=== PATIENT | male | born 1950 | race Caucasian/White ===

== ENCOUNTER 2016-04-02 06:53 | Emergency (ER) | payer OTHER ==
[~2016-04-02] VITALS: Ht 180.3 cm; Wt 131.5 kg
[~2016-04-02 06:53] MED LIST: ADULT LOW DOSE81 M1 PO; ADVAIR 250/501 DISK IH; ADVAIR 500/501 DISK IH; ADVAIR HFA120 INHALA IH; ALBUTEROL SULF8.5 GM IH; AMBIEN10 MG PO; AMBIEN5 MG PO; AMLODIPINE BESY10 MG PO; AMLODIPINE BESYL5 MG PO; ANTIVERT25 MG PO; APIDRA SOL100 UNIT/1 SC; ASPIR-LOW81 MG PO; ATORVASTATIN CA40 MG PO; AZITHROMYCIN250 MG PO; Advair 250/50 Diskus IH; Aspirin E.C. PO; BYETTA10 MCG/0.0 SC; BYETTA10 MCG/0.0 SQ; CEFEPIME HCL2 GM IV; CIPRO500 MG PO; CIPROFLOXACIN500 M1 PO; CLEOCIN150 MG PO; CO Q-1050 MG; CO Q-1050 MG PO; COENZYME Q1050 MG PO; COMBIVENT INH14.7 GM; COMBIVENT200 INHALA IH; COREG12.5 M1 PO; COREG6.25 M1 PO; CYMBALTA30 MG PO; CYMBALTA60 MG PO; Cymbalta PO; DEPAKENE250 MG PO; DEPAKOTE ER250 MG PO; DEPAKOTE ER500 MG PO; DEPAKOTE250 MG PO; DEPAKOTE500 MG PO; DILAUDID2 MG PO; DIVALPROEX SOD250 M1 PO; DIVALPROEX SOD250 MG PO; DIVALPROEX SOD500 MG PO; DOXYCYCLINE HY100 M1 PO; DULCOLAX10 MG PR; DULOXETINE HCL30 MG PO; DUONEB 2.5-0.5 M3 ML AEROSOL; DUONEB 2.5-0.5 M3 ML IH; Depakote ER (Extende PO; DuoNeb IH; FLEET ENEMA-AD118 ML PR; FLOMAX0.4 MG PO; FLORASTOR250 MG PO; FUROSEMIDE40 MG PO; GLIPIZIDE10 MG PO; GLUCOPHAGE1000 MG PO; HYDROCHLOROTH12.5 M3 PO; HYDROCHLOROTHIA25 MG PO; HYDROMORPHONE HC2 MG PO; IMODIUM MS REL1 EACH PO; INCRUSE ELLI62.5 MCG IH; IPRATR-ALBUTEROL3 ML IH; KIONEX15 GM/60 M PO; KLONOPIN0.5 M1 PO; KLOR-CON M1010 MEQ PO; LANTUS 10100 UNITS/ SC; LANTUS 3 M100 UNITS/ SQ; LANTUS 3 M100 UNITS1 SC; LASIX10 MG PO; LASIX20 MG PO; LASIX40 MG PO; LASIX80 MG PO; LEVAQUIN500 MG PO; LEVAQUIN750 MG PO; LEVEMIR FL100 UNIT/1 SC; LEVEMIR100 UNIT/2 SC; LEVOFLOXACIN750 MG PO; LINEZOLID600 MG PO; LIPITOR40 MG PO; LISINOPRIL-HCT1 EAC3 PO; LISINOPRIL10 MG PO; LISINOPRIL2.5 MG PO; LISINOPRIL20 MG PO; LISINOPRIL5 MG PO; LO-DOSE ASPIRIN81 M1 PO; LOW DOSE ASPIRI81 M1 PO; LYRICA75 MG PO; Levaquin PO; Lipitor PO; MAALOX ADVANCE355 ML PO; MACHINE; MAXIPIME2 GM IM; MEDROL DOSEPAK4 MG PO; MELOXICAM15 MG PO; METFORMIN HCL1000 MG PO; METFORMIN HCL850 MG PO; MILK OF MAGN PO; MOBIC15 MG PO; MOBIC7.5 MG PO; MONTELUKAST SOD10 MG PO; NORVASC5 MG PO; NOVOLOG 10100 UNITS/ SC; NOVOLOG PE100 UNITS/ SC; NOVOLOG100 UNIT/1 SQ; OMEPRAZOLE20 MG PO; OXYGEN MC; PERCOCET 5-3251 EACH PO; PERCOCET 5/31 TABLET PO; PLAVIX75 MG PO; PREDNISONE10 MG PO; PREDNISONE20 MG PO; PREDNISONE50 MG PO; PRILOSEC10 MG PO; PRILOSEC20 MG PO; PROAIR HFA8.5 GM IH; PROVENTIL,2.5 MG/3 M IH; Plavix PO; SINGULAIR10 MG PO; SODIUM POL15 GM/60 M PO; SPIRIVA1 INHALATI IH; ST. JOSEPH ASPI81 MG PO; Singulair PO; TAMSULOSIN HCL0.4 MG PO; TRICOR145 MG PO; TUMS500 MG PO; TYLENOL REGULA325 MG PO; Tylenol Regular Stre PO; VENTOLIN HFA18 GM IH; VIAGRA50 MG PO; VITAMIN D-32000 UNI1 PO; VITAMIN D-32000 UNI2 PO; VITAMIN D2000 UNIT PO; VITAMIN D32000 UNI1 PO; VITAMIN D32000 UNIT PO; XANAX0.5 MG PO; ZESTRIL,PRINIVI10 MG PO; ZESTRIL10 MG PO; ZETIA10 MG; ZETIA10 MG PO; ZITHROMAX Z-PA250 MG PO; ZITHROMAX250 MG PO; ZOCOR80 MG PO; ZOLPIDEM TARTRA10 MG PO; ZYVOX600 MG PO; Zestril,Prinivil PO; Zetia PO; [UNRECOGNIZED DRUG - OTHER]
[2016-04-02 07:36] LABS: HEMATOCRIT 32.6 % (38.0-50.0); MCH 26.5 PG (29.0-34.0); MCHC 31.9 G/DL (30.0-36.0); MEAN PLAT.VOLUME 10.6 uM^3 (9.0-12.4); PLATELET COUNT 143 K/uL (156-360); RBC DIS.WIDTH-CV 14.9 % (11.8-14.6); RBC DIS.WIDTH-SD 44.1 % (39-53); RED BLOOD COUNT 3.93 M/uL (4.00-5.50); WHITE BLOOD COUNT 7.6 K/uL (4.1-10.2)
[2016-04-02 07:57] LABS: BASOPHIL COUNT 0.1 K/uL (0-0.1); EOSINOPHIL (%) 14.4 % (0-5); EOSINOPHIL COUNT 1.1 K/uL (0-0.3); IMMATURE GRANULOCYTE (%) 0.1 % (0.0-0.7); IMMATURE GRANULOCYTE COUNT 0.1 K/uL; LYMPHOCYTE COUNT 2.3 K/uL (1.0-2.8); MONOCYTE (%) 6.9 % (3-12); MONOCYTE COUNT 0.5 K/uL (0-0.8); NEUTROPHIL (%) 47.4 % (45-76); NEUTROPHIL COUNT 3.6 K/uL (1.8-6.4)
[2016-04-02 08:07] LABS: ANION GAP 12 MEQ/L (2-14); CHLORIDE 106 MEQ/L (99-109); POTASSIUM 5.7 MEQ/L (3.7-5.4); SAMPLE HEMOLYSIS CHECK 0; SAMPLE ICTERIC CHECK 0; SAMPLE LIPEMIA CHECK 0; SODIUM 139 MEQ/L (136-147); TOTAL BILIRUBIN 0.3 MG/DL (0.0-1.0)
[2016-04-02 08:12] LABS: ALKALINE PHOSPHATASE 66 IU/L (3-129); GFR ESTIMATE (CALCULATED) 54 mL/min/; GLUCOSE 192 mg/dL (70-99); LIPASE 35 U/L (1.0-51.0); UREA NITROGEN (BUN) 32 mg/dL (9-23)
[2016-04-02 11:13] LABS: ADD MIUA? NO; BILIRUBIN NEGATIVE; BLOOD NEGATIVE; COLOR YELLOW ((YELLOW)); GLUCOSE (STRIP) NEGATIVE; KETONES NEGATIVE; LEUKOCYTES NEGATIVE; NITRITE NEGATIVE; PROTEIN (STRIP) TRACE; SPECIFIC GRAVITY 1.016 (1.000-1.030); UROBILINOGEN 0.2 MG/DL (0.2-1.0)
[2016-04-02] MEDS ORDERED: FUROSEMIDE40 MG PO (11:14)
[2016-04-02 11:15] LABS: UCUL ADDED? NO
[2016-04-02] MEDS ORDERED: ZOFRAN4 MG PO (12:25)
[2016-04-02 12:58] VITALS: BP 158/65
== END 2016-04-02 13:20 | disposition home or self-care (01) ==
LOC: EME 06:53
PROVIDERS: Emergency Medicine
DX: R11.2 Nausea with vomiting, unspecified (principal); J45.909 Unspecified asthma, uncomplicated; J44.9 Chronic obstructive pulmonary disease, unspecified; I11.0 Hypertensive heart disease with heart failure; I50.9 Heart failure, unspecified; E11.9 Type 2 diabetes mellitus without complications; E78.5 Hyperlipidemia, unspecified; I25.2 Old myocardial infarction; K21.9 Gastro-esophageal reflux disease without esophagitis; R56.9 Unspecified convulsions; G47.30 Sleep apnea, unspecified; E03.9 Hypothyroidism, unspecified; Z86.14 Personal history of Methicillin resistant Staphylococcus aureus infection; Z79.82 Long term (current) use of aspirin; Z79.4 Long term (current) use of insulin; Z87.891 Personal history of nicotine dependence
CPT/HCPCS: 74176; 80053; 81003; 83605; 83690; 85025; 93005; 99281; 99285; J2405

== ENCOUNTER 2016-04-16 23:24 | Observation (INO) | payer OTHER ==
[~2016-04-16] VITALS: Ht 177.8 cm; Wt 123.6 kg
[~2016-04-16 23:24] MED LIST changes: +ZOFRAN4 MG PO
[2016-04-17 00:22] LABS: CHLORIDE 111 mEq/L (99-109); POTASSIUM 5.4 mEq/L (3.7-5.4); SODIUM 139 mEq/L (136-147)
[2016-04-17 00:24] LABS: BASOPHIL COUNT 0.1 K/uL (0-0.1); EOSINOPHIL COUNT 0.6 K/uL (0-0.3); HEMATOCRIT 33.7 % (38.0-50.0); IMMATURE GRANULOCYTE (%) 0.4 % (0.0-0.7); IMMATURE GRANULOCYTE COUNT 0.3 K/uL; LYMPHOCYTE COUNT 2.3 K/uL (1.0-2.8); MCH 26.7 PG (29.0-34.0); MCHC 32.3 G/DL (30.0-36.0); MCV 82.4 FL (86-99); MONOCYTE (%) 7.1 % (3-12); MONOCYTE COUNT 0.5 K/uL (0-0.8); NEUTROPHIL (%) 48.3 % (45-76); NEUTROPHIL COUNT 3.3 K/uL (1.8-6.4); RBC DIS.WIDTH-CV 14.9 % (11.8-14.6); RBC DIS.WIDTH-SD 43.3 % (39-53); RED BLOOD COUNT 4.09 M/uL (4.00-5.50); WHITE BLOOD COUNT 6.8 K/uL (4.1-10.2)
[2016-04-17 00:24] LABS: GLUCOSE 155 mg/dL (70-99)
[2016-04-17 00:25] LABS: ANION GAP 9 MEQ/L (2-14)
[2016-04-17 00:28] LABS: GFR ESTIMATE (CALCULATED) 50 mL/min/
[2016-04-17 00:29] LABS: UREA NITROGEN (BUN) 21 mg/dL (9-23)
[2016-04-17 00:34] LABS: TROP-I INTERPRETATION NEGATIVE; TROPONIN-I < 0.01 ng/mL (0.0-0.30)
[2016-04-17 01:43] LABS: USER ID SLU
[2016-04-17 01:44] LABS: MEAN PLAT.VOLUME 11.5 uM^3 (9.0-12.4); PLATELET COUNT UNABLE TO REPORT K/uL (156-360)
[2016-04-17 05:07] VITALS: BP 169/80
[2016-04-17 07:27] LABS: HDL CHOLESTEROL 29 MG/DL (Desirable>=40); LDL CHOLESTEROL 74 mg/dL (Desirable<100); NON-HDL CHOLESTEROL 109 mg/dL (Desirable<160); TOTAL CHOLESTEROL 138 mg/dL (Desirable<200); TRIGLYCERIDES 176 MG/DL (Normal: <150)
[2016-04-17 07:35] LABS: TROP-I INTERPRETATION NEGATIVE; TROPONIN-I < 0.01 ng/mL (0.0-0.30)
[2016-04-17 08:00] VITALS: BP 137/68
[2016-04-17 08:55] LABS: POINT-OF-CARE METER ID UU13113831
[2016-04-17 12:33] VITALS: BP 158/72
[2016-04-17 12:41] LABS: POINT-OF-CARE METER ID UU13113831
[2016-04-17 13:07] LABS: TROP-I INTERPRETATION NEGATIVE; TROPONIN-I 0.01 ng/mL (0.0-0.30)
[2016-04-17] MEDS ORDERED: LIDOCAINE700 MG TD (13:14)
== END 2016-04-17 15:15 | disposition home health service (06) ==
LOC: EME 23:24 → EDOF 04-17 03:48 → 5WEST 04-17 04:55
PROVIDERS: Emergency Medicine; Hospitalist; Physician Assistant Medical
DX: R07.89 Other chest pain (principal); R11.2 Nausea with vomiting, unspecified; R06.02 Shortness of breath; I25.2 Old myocardial infarction; I13.0 Hypertensive heart and chronic kidney disease with heart failure and stage 1 through stage 4 chronic kidney disease, or unspecified chronic kidney disease; N18.3 Chronic kidney disease, stage 3 (moderate); I50.30 Unspecified diastolic (congestive) heart failure; I25.10 Atherosclerotic heart disease of native coronary artery without angina pectoris; I25.82 Chronic total occlusion of coronary artery; E11.65 Type 2 diabetes mellitus with hyperglycemia; Z79.4 Long term (current) use of insulin; E78.5 Hyperlipidemia, unspecified; J44.9 Chronic obstructive pulmonary disease, unspecified; K21.9 Gastro-esophageal reflux disease without esophagitis; Z87.891 Personal history of nicotine dependence; G47.33 Obstructive sleep apnea (adult) (pediatric); Z91.19 Patient's noncompliance with other medical treatment and regimen; G40.909 Epilepsy, unspecified, not intractable, without status epilepticus; E66.01 Morbid (severe) obesity due to excess calories; N40.0 Benign prostatic hyperplasia without lower urinary tract symptoms; M19.90 Unspecified osteoarthritis, unspecified site; Z68.39 Body mass index [BMI] 39.0-39.9, adult
CPT/HCPCS: 71010; 80048; 80061; 82948; 83880; 84484; 85025; 93005; 94640; 99202; 99281; 99285; G0378; J1650; J1815; J1885

== ENCOUNTER 2016-04-27 02:51 | Observation (INO) | payer OTHER ==
[~2016-04-27] VITALS: Ht 180.3 cm; Wt 127.8 kg
[~2016-04-27 02:51] MED LIST changes: +LIDOCAINE700 MG TD
[2016-04-27 03:40] LABS: BASOPHIL COUNT 0.1 K/uL (0-0.1); EOSINOPHIL (%) 5.9 % (0-5); EOSINOPHIL COUNT 0.4 K/uL (0-0.3); HEMATOCRIT 31.5 % (38.0-50.0); IMMATURE GRANULOCYTE (%) 0.1 % (0.0-0.7); IMMATURE GRANULOCYTE COUNT 0.1 K/uL; LYMPHOCYTE COUNT 2.4 K/uL (1.0-2.8); MCH 26.2 PG (29.0-34.0); MCHC 32.1 G/DL (30.0-36.0); MCV 81.8 FL (86-99); MONOCYTE (%) 7.6 % (3-12); MONOCYTE COUNT 0.5 K/uL (0-0.8); NEUTROPHIL (%) 51.6 % (45-76); NEUTROPHIL COUNT 3.7 K/uL (1.8-6.4); RBC DIS.WIDTH-CV 14.8 % (11.8-14.6); RBC DIS.WIDTH-SD 42.9 % (39-53); RED BLOOD COUNT 3.85 M/uL (4.00-5.50); WHITE BLOOD COUNT 7.1 K/uL (4.1-10.2)
[2016-04-27 03:52] LABS: CHLORIDE 111 mEq/L (99-109); POTASSIUM 4.6 mEq/L (3.7-5.4); SODIUM 139 mEq/L (136-147)
[2016-04-27 03:55] LABS: GLUCOSE 221 mg/dL (70-99)
[2016-04-27 03:56] LABS: ANION GAP 10 MEQ/L (2-14); TOTAL BILIRUBIN 0.3 mg/dL (0.0-1.0)
[2016-04-27 03:58] LABS: ALKALINE PHOSPHATASE 64 IU/L (3-129); GFR ESTIMATE (CALCULATED) 46 mL/min/
[2016-04-27 03:59] LABS: UREA NITROGEN (BUN) 32 mg/dL (9-23)
[2016-04-27 04:02] LABS: LIPASE 29 U/L (1.0-51.0)
[2016-04-27 04:04] LABS: TROP-I INTERPRETATION NEGATIVE; TROPONIN-I < 0.01 ng/mL (0.0-0.30)
[2016-04-27 04:34] LABS: MEAN PLAT.VOLUME 10.1 uM^3 (9.0-12.4); PLAT.SUFFICIENCY ADEQUATE
[2016-04-27 04:36] LABS: ADD MIUA? YES; BILIRUBIN NEGATIVE; BLOOD SMALL; COLOR YELLOW ((YELLOW)); GLUCOSE (STRIP) NEGATIVE; KETONES NEGATIVE; LEUKOCYTES NEGATIVE; NITRITE NEGATIVE; PH, URINE 5.5 (5-8); PROTEIN (STRIP) TRACE; SPECIFIC GRAVITY 1.012 (1.000-1.030); UROBILINOGEN 0.2 MG/DL (0.2-1.0)
[2016-04-27 04:38] LABS: PLATELET COUNT 122 K/uL (156-360)
[2016-04-27 05:42] LABS: BACTERIA NONE SEEN; CASTS NONE SEEN /LPF; CRYSTALS NONE SEEN; EPITHELIAL CELLS NONE SEEN; MUCUS NONE SEEN; RED BLOOD CELLS NONE SEEN /HPF (0-5); UCUL ADDED? NO; WHITE BLOOD CELLS 0-5 /HPF (0-5)
[2016-04-27 07:19] LABS: POINT-OF-CARE METER ID UU14100415
[2016-04-27] MEDS ORDERED: SALINE NASAL SP45 ML BOTH NARES (07:46)
[2016-04-27 09:55] VITALS: BP 150/71
[2016-04-27 11:09] VITALS: BP 148/79
[2016-04-27 11:26] LABS: POINT-OF-CARE METER ID UU14174225
[2016-04-27 15:46] VITALS: BP 157/72
[2016-04-27 20:11] VITALS: BP 152/72
[2016-04-28] VITALS (7 sets, daily range): BP systolic 130–179; BP diastolic 58–86
[2016-04-28 06:52] LABS: HEMATOCRIT 30.3 % (38.0-50.0); MCH 26.5 PG (29.0-34.0); MCV 80.4 FL (86-99); MEAN PLAT.VOLUME 10.3 uM^3 (9.0-12.4); PLATELET COUNT 130 K/uL (156-360); RBC DIS.WIDTH-CV 14.8 % (11.8-14.6); RED BLOOD COUNT 3.77 M/uL (4.00-5.50)
[2016-04-28 07:21] LABS: ANION GAP 7 MEQ/L (2-14); CHLORIDE 109 MEQ/L (99-109); GFR ESTIMATE (CALCULATED) 46 mL/min/; POTASSIUM 5.3 MEQ/L (3.7-5.4); SAMPLE HEMOLYSIS CHECK 0; SAMPLE ICTERIC CHECK 0; SAMPLE LIPEMIA CHECK 0; SODIUM 138 MEQ/L (136-147); UREA NITROGEN (BUN) 32 mg/dL (9-23)
[2016-04-28 07:28] LABS: GLUCOSE 104 mg/dL (70-99)
[2016-04-28 07:43] LABS: METH RESISTANT S AUREUS PCR POSITIVE (NEGATIVE)
[2016-04-28 07:46] LABS: PROBE CHECK PASS
[2016-04-29 04:00] VITALS: BP 148/85
[2016-04-29 07:30] VITALS: BP 156/72
[2016-04-29 09:55] LABS: ANION GAP 7 MEQ/L (2-14); CHLORIDE 107 MEQ/L (99-109); GFR ESTIMATE (CALCULATED) 40 mL/min/; GLUCOSE 142 mg/dL (70-99); POTASSIUM 5.3 MEQ/L (3.7-5.4); SAMPLE HEMOLYSIS CHECK 0; SAMPLE ICTERIC CHECK 0; SAMPLE LIPEMIA CHECK 0; SODIUM 136 MEQ/L (136-147); UREA NITROGEN (BUN) 42 mg/dL (9-23)
[2016-04-29 10:48] VITALS: BP 165/79
[2016-04-29] MEDS ORDERED: LEVOFLOXACIN750 MG PO (12:42)
[2016-04-29] MEDS ORDERED: PREDNISONE20 MG PO (12:42)
[2016-04-29] MEDS ORDERED: SPIRIVA1 INHALATI IH (12:46)
[2016-04-29 15:56] VITALS: BP 148/70
== END 2016-04-29 16:33 | disposition home health service (06) ==
LOC: EME → EDBD 02:51 → EME 02:51 → 5SOUTH 05:57 → EDOF 05:57 → 5SOUTH 09:33
PROVIDERS: Emergency Medicine; Hospitalist
DX: J44.1 Chronic obstructive pulmonary disease with (acute) exacerbation (principal); R09.02 Hypoxemia; R07.89 Other chest pain; I10 Essential (primary) hypertension; E11.9 Type 2 diabetes mellitus without complications; R06.09 Other forms of dyspnea; F41.9 Anxiety disorder, unspecified; F32.9 Major depressive disorder, single episode, unspecified; Z99.81 Dependence on supplemental oxygen; R10.9 Unspecified abdominal pain; E66.9 Obesity, unspecified; G47.30 Sleep apnea, unspecified; J30.9 Allergic rhinitis, unspecified; Z88.0 Allergy status to penicillin; Z88.5 Allergy status to narcotic agent
CPT/HCPCS: 71010; 74176; 80048; 80053; 80164; 81003; 82948; 83690; 83880; 84484; 85025; 85027; 87641; 93005; 94640; 94640 76; 94799; 99202; 99281; 99285; G0378; J1650; J1815; J1885; J2405; J7030; J7512

== ENCOUNTER 2016-06-09 12:15 | Observation (INO) | payer OTHER ==
[~2016-06-09] VITALS: Ht 180.3 cm; Wt 132.7 kg
[~2016-06-09 12:15] MED LIST changes: +SALINE NASAL SP45 ML BOTH NARES
[2016-06-09 12:44] LABS: BASOPHIL COUNT 0.1 K/uL (0-0.1); EOSINOPHIL (%) 7.6 % (0-5); EOSINOPHIL COUNT 0.5 K/uL (0-0.3); HEMATOCRIT 32.9 % (38.0-50.0); IMMATURE GRANULOCYTE (%) 0.4 % (0.0-0.7); INSTRUMENT ABS NEUTROPHIL CT 3.4 K/uL; LYMPHOCYTE COUNT 2.2 K/uL (1.0-2.8); MCH 26.3 PG (29.0-34.0); MCHC 31.9 G/DL (30.0-36.0); MCV 82.3 FL (86-99); MEAN PLAT.VOLUME 9.8 uM^3 (9.0-12.4); MONOCYTE (%) 9.3 % (3-12); MONOCYTE COUNT 0.6 K/uL (0-0.8); NEUTROPHIL (%) 49.5 % (45-76); NEUTROPHIL COUNT 3.4 K/uL (1.8-6.4); PLATELET COUNT 159 K/uL (156-360); RBC DIS.WIDTH-CV 13.8 % (11.8-14.6); RBC DIS.WIDTH-SD 41.4 % (39-53); WHITE BLOOD COUNT 6.9 K/uL (4.1-10.2)
[2016-06-09 13:02] LABS: CHLORIDE 108 mEq/L (99-109); INTER. NORMALIZED RATIO 1.1; POTASSIUM 4.8 mEq/L (3.7-5.4); PROTHROMBIN TIME 10.9 (9.2-11.2); PTT 24.5 (25-32); SODIUM 141 mEq/L (136-147)
[2016-06-09 13:04] LABS: GLUCOSE 192 mg/dL (70-99)
[2016-06-09 13:05] LABS: ANION GAP 9 MEQ/L (2-14)
[2016-06-09 13:08] LABS: GFR ESTIMATE (CALCULATED) 54 mL/min/
[2016-06-09 13:09] LABS: UREA NITROGEN (BUN) 17 mg/dL (9-23)
[2016-06-09 13:10] LABS: TROP-I INTERPRETATION NEGATIVE; TROPONIN-I < 0.01 ng/mL (0.0-0.30)
[2016-06-09] MEDS ORDERED: LASIX40 MG PO (15:12)
[2016-06-09] MEDS ORDERED: OCEAN NASAL 0.645 ML BOTH NARES (15:12)
[2016-06-09] MEDS ORDERED: VITAMIN D31000 UNI2 PO (15:13)
[2016-06-09] MEDS ORDERED: PAIN & FEVER500 MG PO (15:13)
[2016-06-09 16:44] VITALS: BP 187/86
[2016-06-09 16:57] LABS: POINT-OF-CARE METER ID UU13113831
[2016-06-09 19:16] LABS: TROP-I INTERPRETATION NEGATIVE; TROPONIN-I 0.01 ng/mL (0.0-0.30)
[2016-06-09 20:32] LABS: METH RESISTANT S AUREUS PCR POSITIVE (NEGATIVE)
[2016-06-09 20:35] LABS: PROBE CHECK PASS
[2016-06-09 20:39] LABS: POINT-OF-CARE METER ID UU13113831
[2016-06-09 21:17] VITALS: BP 150/78
[2016-06-09 23:02] VITALS: BP 158/78
[2016-06-10 01:28] LABS: TROP-I INTERPRETATION NEGATIVE; TROPONIN-I < 0.01 ng/mL (0.0-0.30)
[2016-06-10 04:10] VITALS: BP 163/72
[2016-06-10 06:06] LABS: HEMATOCRIT 30.2 % (38.0-50.0); MCH 26.6 PG (29.0-34.0); MCHC 32.1 G/DL (30.0-36.0); MCV 82.7 FL (86-99); MEAN PLAT.VOLUME 10.5 uM^3 (9.0-12.4); PLATELET COUNT 144 K/uL (156-360); RBC DIS.WIDTH-CV 14.3 % (11.8-14.6); RBC DIS.WIDTH-SD 42.6 % (39-53); RED BLOOD COUNT 3.65 M/uL (4.00-5.50); WHITE BLOOD COUNT 7.1 K/uL (4.1-10.2)
[2016-06-10 06:18] LABS: ANION GAP 10 MEQ/L (2-14); CHLORIDE 106 MEQ/L (99-109); GFR ESTIMATE (CALCULATED) 54 mL/min/; GLUCOSE 169 mg/dL (70-99); SAMPLE HEMOLYSIS CHECK 0; SAMPLE ICTERIC CHECK 0; SAMPLE LIPEMIA CHECK 0; SODIUM 138 MEQ/L (136-147); UREA NITROGEN (BUN) 22 mg/dL (9-23)
[2016-06-10 07:27] VITALS: BP 139/65
[2016-06-10] MEDS ORDERED: LIPITOR40 MG PO (11:35)
[2016-06-10] MEDS ORDERED: FLOMAX0.4 MG PO (11:35)
[2016-06-10] MEDS ORDERED: HYDROCHLOROTHIA25 MG PO (11:35)
[2016-06-10] MEDS ORDERED: DEPAKOTE ER500 MG PO (11:35)
[2016-06-10] MEDS ORDERED: DEPAKOTE ER250 MG PO (11:35)
[2016-06-10] MEDS ORDERED: KLONOPIN0.5 M1 PO (11:35)
[2016-06-10] MEDS ORDERED: AMLODIPINE BESY10 MG PO (11:35)
[2016-06-10] MEDS ORDERED: LISINOPRIL2.5 MG PO (12:17)
[2016-06-10] MEDS ORDERED: AMLODIPINE BESYL5 MG PO (12:17)
[2016-06-10 12:34] VITALS: BP 141/64
[2016-06-10 12:43] LABS: POINT-OF-CARE METER ID UU13113831
== END 2016-06-10 16:10 | disposition home or self-care (01) ==
LOC: EME → EDBD 12:15 → EME 12:15 → EDOF 14:06 → 5WEST 14:06
PROVIDERS: Emergency Medicine; Family Medicine; Hospitalist
DX: R07.89 Other chest pain (principal); I25.10 Atherosclerotic heart disease of native coronary artery without angina pectoris; I13.0 Hypertensive heart and chronic kidney disease with heart failure and stage 1 through stage 4 chronic kidney disease, or unspecified chronic kidney disease; I50.9 Heart failure, unspecified; N18.3 Chronic kidney disease, stage 3 (moderate); J44.9 Chronic obstructive pulmonary disease, unspecified; D63.8 Anemia in other chronic diseases classified elsewhere; E11.9 Type 2 diabetes mellitus without complications; G47.30 Sleep apnea, unspecified; Z91.19 Patient's noncompliance with other medical treatment and regimen; E78.5 Hyperlipidemia, unspecified; F41.9 Anxiety disorder, unspecified; F31.9 Bipolar disorder, unspecified; E66.9 Obesity, unspecified; Z68.41 Body mass index [BMI] 40.0-44.9, adult; Z87.891 Personal history of nicotine dependence
CPT/HCPCS: 71010; 80048; 82948; 84484; 85025; 85027; 85610; 85730; 87641; 93005; 99281; 99285; G0378; J1644; J1815

== ENCOUNTER 2016-06-21 11:09 | Emergency (ER) | payer OTHER ==
[~2016-06-21] VITALS: Ht 180.3 cm; Wt 120.7 kg
[~2016-06-21 11:09] MED LIST changes: +OCEAN NASAL 0.645 ML BOTH NARES; +PAIN & FEVER500 MG PO; +VITAMIN D31000 UNI2 PO
[2016-06-21 12:54] LABS: INFLUENZA A VIRAL ANTIGEN NEGATIVE; INFLUENZA B VIRAL ANTIGEN NEGATIVE
[2016-06-21 12:56] LABS: HEMATOCRIT 30.6 % (38.0-50.0); MCH 26.2 PG (29.0-34.0); MCHC 31.4 G/DL (30.0-36.0); MCV 83.6 FL (86-99); MEAN PLAT.VOLUME 9.9 uM^3 (9.0-12.4); PLATELET COUNT 186 K/uL (156-360); RBC DIS.WIDTH-CV 14.4 % (11.8-14.6); RBC DIS.WIDTH-SD 43.1 % (39-53); RED BLOOD COUNT 3.66 M/uL (4.00-5.50); WHITE BLOOD COUNT 8.3 K/uL (4.1-10.2)
[2016-06-21 13:09] LABS: CHLORIDE 107 mEq/L (99-109); POTASSIUM 4.6 mEq/L (3.7-5.4); SODIUM 140 mEq/L (136-147)
[2016-06-21 13:11] LABS: GLUCOSE 145 mg/dL (70-99)
[2016-06-21 13:13] LABS: ANION GAP 13 MEQ/L (2-14); TOTAL BILIRUBIN 0.5 mg/dL (0.0-1.0)
[2016-06-21 13:15] LABS: ALKALINE PHOSPHATASE 78 IU/L (3-129); GFR ESTIMATE (CALCULATED) 54 mL/min/
[2016-06-21 13:16] LABS: UREA NITROGEN (BUN) 20 mg/dL (9-23)
[2016-06-21 13:20] LABS: TROP-I INTERPRETATION NEGATIVE; TROPONIN-I < 0.01 ng/mL (0.0-0.30)
[2016-06-21] MEDS ORDERED: PREDNISONE50 MG PO (14:50)
[2016-06-21 15:22] VITALS: BP 154/61
== END 2016-06-21 15:23 | disposition home or self-care (01) ==
LOC: EME → EDBD 11:09 → EME 15:23
PROVIDERS: Emergency Medicine
DX: J44.1 Chronic obstructive pulmonary disease with (acute) exacerbation (principal); B34.9 Viral infection, unspecified; M79.1 Myalgia; J45.909 Unspecified asthma, uncomplicated; I11.0 Hypertensive heart disease with heart failure; I50.9 Heart failure, unspecified; E11.9 Type 2 diabetes mellitus without complications; E78.5 Hyperlipidemia, unspecified; I25.2 Old myocardial infarction; K21.9 Gastro-esophageal reflux disease without esophagitis; G47.30 Sleep apnea, unspecified; Z86.14 Personal history of Methicillin resistant Staphylococcus aureus infection; E03.9 Hypothyroidism, unspecified; Z79.82 Long term (current) use of aspirin; Z79.4 Long term (current) use of insulin; Z87.891 Personal history of nicotine dependence
CPT/HCPCS: 71020; 80053; 81003; 83880; 84484; 85027; 87502; 94644; 99281; 99285; J2930

== ENCOUNTER 2016-07-18 10:27 | Observation (INO) | payer OTHER ==
[~2016-07-18] VITALS: Ht 180.3 cm; Wt 121.5 kg
[2016-07-18 11:05] LABS: BASOPHIL COUNT 0.1 K/uL (0-0.1); EOSINOPHIL (%) 6.9 % (0-5); EOSINOPHIL COUNT 0.5 K/uL (0-0.3); HEMATOCRIT 33.7 % (38.0-50.0); IMMATURE GRANULOCYTE (%) 0.4 % (0.0-0.7); INSTRUMENT ABS NEUTROPHIL CT 3.7 K/uL; LYMPHOCYTE COUNT 2.3 K/uL (1.0-2.8); MCH 26.4 PG (29.0-34.0); MCHC 32.3 G/DL (30.0-36.0); MCV 81.6 FL (86-99); MONOCYTE (%) 7.8 % (3-12); MONOCYTE COUNT 0.6 K/uL (0-0.8); NEUTROPHIL COUNT 3.7 K/uL (1.8-6.4); PLATELET COUNT 176 K/uL (156-360); RBC DIS.WIDTH-CV 14.6 % (11.8-14.6); RBC DIS.WIDTH-SD 42.5 % (39-53); RED BLOOD COUNT 4.13 M/uL (4.00-5.50); WHITE BLOOD COUNT 7.1 K/uL (4.1-10.2)
[2016-07-18 11:16] LABS: CHLORIDE 108 mEq/L (99-109); D-DIMER ELISA 1.44 mg/L FEU (< 0.57); POTASSIUM 4.4 mEq/L (3.7-5.4); SODIUM 139 mEq/L (136-147)
[2016-07-18 11:19] LABS: GLUCOSE 277 mg/dL (70-99)
[2016-07-18 11:20] LABS: ANION GAP 12 MEQ/L (2-14)
[2016-07-18 11:21] LABS: TOTAL BILIRUBIN 0.4 mg/dL (0.0-1.0)
[2016-07-18 11:22] LABS: ALKALINE PHOSPHATASE 85 IU/L (3-129); GFR ESTIMATE (CALCULATED) 46 mL/min/
[2016-07-18 11:23] LABS: UREA NITROGEN (BUN) 34 mg/dL (9-23)
[2016-07-18 11:26] LABS: LIPASE 28 U/L (1.0-51.0); TROP-I INTERPRETATION NEGATIVE; TROPONIN-I < 0.01 ng/mL (0.0-0.30)
[2016-07-18] MEDS ORDERED: DUONEB 2.5-0.5 M3 ML AEROSOL (14:59)
[2016-07-18] MEDS ORDERED: PROAIR HFA8.5 GM IH (14:59)
[2016-07-18] MEDS ORDERED: NORVASC5 MG PO (15:10)
[2016-07-18 17:37] VITALS: BP 164/72
[2016-07-18 17:43] LABS: POINT-OF-CARE METER ID UU13113831
[2016-07-18 18:14] LABS: TROP-I INTERPRETATION NEGATIVE; TROPONIN-I < 0.01 ng/mL (0.0-0.30)
[2016-07-18 19:50] VITALS: BP 155/74
[2016-07-18 20:37] LABS: METH RESISTANT S AUREUS PCR POSITIVE (NEGATIVE)
[2016-07-18 20:40] LABS: PROBE CHECK PASS
[2016-07-18 21:37] LABS: POINT-OF-CARE METER ID UU13113831
[2016-07-18 23:18] LABS: TROP-I INTERPRETATION NEGATIVE; TROPONIN-I < 0.01 ng/mL (0.0-0.30)
[2016-07-19] VITALS: BP 148/82
[2016-07-19 04:00] VITALS: BP 142/62
[2016-07-19 06:12] LABS: HEMATOCRIT 29.3 % (38.0-50.0); MCH 26.2 PG (29.0-34.0); MCHC 31.7 G/DL (30.0-36.0); MCV 82.5 FL (86-99); MEAN PLAT.VOLUME 10.8 uM^3 (9.0-12.4); PLATELET COUNT 160 K/uL (156-360); RBC DIS.WIDTH-CV 14.5 % (11.8-14.6); RBC DIS.WIDTH-SD 42.9 % (39-53); RED BLOOD COUNT 3.55 M/uL (4.00-5.50)
[2016-07-19 06:25] LABS: ANION GAP 9 MEQ/L (2-14); CHLORIDE 106 MEQ/L (99-109); GFR ESTIMATE (CALCULATED) 50 mL/min/; GLUCOSE 225 mg/dL (70-99); POTASSIUM 4.8 MEQ/L (3.7-5.4); SAMPLE HEMOLYSIS CHECK 0; SAMPLE ICTERIC CHECK 0; SAMPLE LIPEMIA CHECK 0; SODIUM 138 MEQ/L (136-147); UREA NITROGEN (BUN) 39 mg/dL (9-23)
[2016-07-19 08:12] LABS: POINT-OF-CARE METER ID UU14162513
[2016-07-19] MEDS ORDERED: KLONOPIN0.5 M1 PO (08:52)
[2016-07-19 09:11] VITALS: BP 146/69
[2016-07-19 11:53] VITALS: BP 143/68
[2016-07-19 12:28] LABS: POINT-OF-CARE METER ID UU14162513
== END 2016-07-19 15:34 | disposition home or self-care (01) ==
LOC: EME → EDBD 10:27 → EME 10:27 → EDOF 14:52 → 5WEST 14:52 → EDOF 14:52 → 5WEST 17:08
PROVIDERS: Emergency Medicine; Hospitalist; Internal Medicine; Physician Assistant Medical
DX: R07.89 Other chest pain (principal); I25.10 Atherosclerotic heart disease of native coronary artery without angina pectoris; I13.0 Hypertensive heart and chronic kidney disease with heart failure and stage 1 through stage 4 chronic kidney disease, or unspecified chronic kidney disease; N18.3 Chronic kidney disease, stage 3 (moderate); I50.9 Heart failure, unspecified; E11.40 Type 2 diabetes mellitus with diabetic neuropathy, unspecified; J44.9 Chronic obstructive pulmonary disease, unspecified; E78.5 Hyperlipidemia, unspecified; F41.9 Anxiety disorder, unspecified; G47.33 Obstructive sleep apnea (adult) (pediatric); F31.9 Bipolar disorder, unspecified; K21.9 Gastro-esophageal reflux disease without esophagitis; J45.909 Unspecified asthma, uncomplicated; E66.01 Morbid (severe) obesity due to excess calories; N40.0 Benign prostatic hyperplasia without lower urinary tract symptoms; Z79.4 Long term (current) use of insulin; Z68.37 Body mass index [BMI] 37.0-37.9, adult
CPT/HCPCS: 71010; 78582; 80048; 80053; 82948; 83690; 83880; 84484; 85025; 85027; 85379; 87641; 93005; 94640; 94640 76; 94760; 94799; 99202; 99281; 99285; A9540; A9567; G0378; J1644; J1815

== ENCOUNTER 2016-08-14 02:20 | Emergency (ER) | payer OTHER ==
[~2016-08-14] VITALS: Ht 180.3 cm; Wt 122.7 kg
[2016-08-14 02:47] LABS: HEMATOCRIT 33.5 % (38.0-50.0); MCH 27.2 PG (29.0-34.0); MCHC 32.5 G/DL (30.0-36.0); MCV 83.5 FL (86-99); MEAN PLAT.VOLUME 10.7 uM^3 (9.0-12.4); PLATELET COUNT 131 K/uL (156-360); RBC DIS.WIDTH-CV 14.1 % (11.8-14.6); RBC DIS.WIDTH-SD 42.8 % (39-53); RED BLOOD COUNT 4.01 M/uL (4.00-5.50); WHITE BLOOD COUNT 5.9 K/uL (4.1-10.2)
[2016-08-14 02:48] LABS: CARBON DIOXIDE (BICARBONATE) 27.3 MEQ/L (20-31)
[2016-08-14 02:57] LABS: CHLORIDE 101 mEq/L (99-109); SODIUM 134 mEq/L (136-147)
[2016-08-14 03:01] LABS: ANION GAP 11 MEQ/L (2-14); TOTAL BILIRUBIN 0.4 mg/dL (0.0-1.0)
[2016-08-14 03:03] LABS: ALKALINE PHOSPHATASE 101 IU/L (3-129); GFR ESTIMATE (CALCULATED) 38 mL/min/
[2016-08-14 03:04] LABS: UREA NITROGEN (BUN) 27 mg/dL (9-23)
[2016-08-14 03:07] LABS: LIPASE 116 U/L (1.0-51.0)
[2016-08-14 03:09] LABS: GLUCOSE 484 mg/dL (70-99)
[2016-08-14 04:14] LABS: ADD MIUA? YES; BILIRUBIN NEGATIVE; BLOOD SMALL; COLOR YELLOW ((YELLOW)); GLUCOSE (STRIP) >=500; KETONES NEGATIVE; LEUKOCYTES NEGATIVE; NITRITE NEGATIVE; PROTEIN (STRIP) 30; SPECIFIC GRAVITY 1.015 (1.000-1.030); UROBILINOGEN 0.2 MG/DL (0.2-1.0)
[2016-08-14 04:17] LABS: BACTERIA NONE SEEN /HPF; EPITHELIAL CELLS NONE SEEN /HPF; MUCUS NONE SEEN /LPF; RED BLOOD CELLS 0-5 /HPF (0-5); UCUL ADDED? NO; WHITE BLOOD CELLS 0-5 /HPF (0-5)
[2016-08-14 04:19] LABS: POINT-OF-CARE METER ID UU13113702; POINT-OF-CARE USER ID NUTMMM10
[2016-08-14 05:22] VITALS: BP 157/71
== END 2016-08-14 05:24 | disposition home or self-care (01) ==
LOC: EME → EDBD 02:20 → EME 05:24
PROVIDERS: Emergency Medicine
DX: I13.0 Hypertensive heart and chronic kidney disease with heart failure and stage 1 through stage 4 chronic kidney disease, or unspecified chronic kidney disease (principal); E11.22 Type 2 diabetes mellitus with diabetic chronic kidney disease; E11.65 Type 2 diabetes mellitus with hyperglycemia; N18.9 Chronic kidney disease, unspecified; I50.9 Heart failure, unspecified; D64.9 Anemia, unspecified; I25.2 Old myocardial infarction; G40.909 Epilepsy, unspecified, not intractable, without status epilepticus; Z87.891 Personal history of nicotine dependence
CPT/HCPCS: 80053; 81003; 82010; 82803; 82948; 83605; 83690; 83930; 85027; 99281; 99284; J7030

== ENCOUNTER 2016-08-28 05:46 | Emergency (ER) | payer OTHER ==
[~2016-08-28] VITALS: Ht 180.3 cm; Wt 123.6 kg
[2016-08-28 06:33] LABS: MCH 27.2 PG (29.0-34.0); MCHC 32.5 G/DL (30.0-36.0); MCV 83.6 FL (86-99); MEAN PLAT.VOLUME 10.1 uM^3 (9.0-12.4); PLATELET COUNT 155 K/uL (156-360); RBC DIS.WIDTH-CV 13.7 % (11.8-14.6); RBC DIS.WIDTH-SD 42.2 % (39-53); RED BLOOD COUNT 3.83 M/uL (4.00-5.50)
[2016-08-28 06:37] LABS: INTER. NORMALIZED RATIO 1.1; PROTHROMBIN TIME 11.4 (9.2-11.2)
[2016-08-28 06:38] LABS: CHLORIDE 107 mEq/L (99-109); POTASSIUM 4.3 mEq/L (3.7-5.4); SODIUM 140 mEq/L (136-147)
[2016-08-28 06:40] LABS: GLUCOSE 226 mg/dL (70-99)
[2016-08-28 06:42] LABS: ANION GAP 10 MEQ/L (2-14)
[2016-08-28 06:44] LABS: GFR ESTIMATE (CALCULATED) 54 mL/min/
[2016-08-28 06:45] LABS: UREA NITROGEN (BUN) 25 mg/dL (9-23)
[2016-08-28 06:51] LABS: TROP-I INTERPRETATION NEGATIVE; TROPONIN-I < 0.01 ng/mL (0.0-0.30)
[2016-08-28 08:42] LABS: TROP-I INTERPRETATION NEGATIVE; TROPONIN-I 0.01 ng/mL (0.0-0.30)
[2016-08-28 09:21] VITALS: BP 166/79
[2016-08-29] MEDS ORDERED: FLEXERIL10 MG PO (10:12)
== END 2016-08-28 10:03 | disposition home or self-care (01) ==
LOC: EME 05:46
PROVIDERS: Emergency Medicine
DX: R07.89 Other chest pain (principal); R10.9 Unspecified abdominal pain; R06.00 Dyspnea, unspecified; I25.2 Old myocardial infarction; I10 Essential (primary) hypertension; J44.9 Chronic obstructive pulmonary disease, unspecified; J45.909 Unspecified asthma, uncomplicated; E11.9 Type 2 diabetes mellitus without complications; Z79.4 Long term (current) use of insulin; Z90.49 Acquired absence of other specified parts of digestive tract; Z79.82 Long term (current) use of aspirin; Z88.0 Allergy status to penicillin; Z87.891 Personal history of nicotine dependence; Z77.22 Contact with and (suspected) exposure to environmental tobacco smoke (acute) (chronic)
CPT/HCPCS: 71010; 80048; 84484; 85027; 85610; 93005; 99281; 99285

== ENCOUNTER 2016-08-29 07:27 | Emergency (ER) | payer OTHER ==
[~2016-08-29] VITALS: Ht 180.3 cm; Wt 121.8 kg
[2016-08-29 08:16] LABS: HEMATOCRIT 33.3 % (38.0-50.0); MCH 27.4 PG (29.0-34.0); MCHC 32.1 G/DL (30.0-36.0); MCV 85.2 FL (86-99); MEAN PLAT.VOLUME 10.5 uM^3 (9.0-12.4); PLATELET COUNT 164 K/uL (156-360); RBC DIS.WIDTH-CV 13.8 % (11.8-14.6); RBC DIS.WIDTH-SD 42.8 % (39-53); RED BLOOD COUNT 3.91 M/uL (4.00-5.50); WHITE BLOOD COUNT 7.9 K/uL (4.1-10.2)
[2016-08-29 08:40] LABS: CHLORIDE 107 mEq/L (99-109); POTASSIUM 4.7 mEq/L (3.7-5.4); SODIUM 139 mEq/L (136-147)
[2016-08-29 08:44] LABS: ANION GAP 8 MEQ/L (2-14); TOTAL BILIRUBIN 0.2 mg/dL (0.0-1.0)
[2016-08-29 08:46] LABS: ALKALINE PHOSPHATASE 86 IU/L (3-129); GFR ESTIMATE (CALCULATED) 43 mL/min/; GLUCOSE 349 mg/dL (70-99)
[2016-08-29 08:47] LABS: UREA NITROGEN (BUN) 34 mg/dL (9-23)
[2016-08-29 08:50] LABS: LIPASE 127 U/L (1.0-51.0)
[2016-08-29 09:30] LABS: ADD MIUA? YES; BILIRUBIN NEGATIVE; BLOOD SMALL; COLOR STRAW ((YELLOW)); GLUCOSE (STRIP) >=500; KETONES NEGATIVE; LEUKOCYTES NEGATIVE; NITRITE NEGATIVE; PROTEIN (STRIP) 30; SPECIFIC GRAVITY 1.013 (1.000-1.030); UROBILINOGEN 0.2 MG/DL (0.2-1.0)
[2016-08-29 09:33] LABS: BACTERIA NONE SEEN /HPF; EPITHELIAL CELLS RARE /HPF; MUCUS NONE SEEN /LPF; RED BLOOD CELLS 0-5 /HPF (0-5); WHITE BLOOD CELLS 0-5 /HPF (0-5)
[2016-08-29] MEDS ORDERED: FLEXERIL10 MG PO (10:12)
[2016-08-29 10:34] VITALS: BP 147/65
== END 2016-08-29 10:34 | disposition home or self-care (01) ==
LOC: EME → EDBD 07:27 → EME 07:27
PROVIDERS: Nurse Practitioner Family
DX: K85.90 Acute pancreatitis without necrosis or infection, unspecified (principal); E11.65 Type 2 diabetes mellitus with hyperglycemia; J45.909 Unspecified asthma, uncomplicated; J44.9 Chronic obstructive pulmonary disease, unspecified; E78.5 Hyperlipidemia, unspecified; I10 Essential (primary) hypertension; I25.2 Old myocardial infarction; K21.9 Gastro-esophageal reflux disease without esophagitis; Z79.4 Long term (current) use of insulin; Z79.82 Long term (current) use of aspirin; Z87.891 Personal history of nicotine dependence
CPT/HCPCS: 74176; 80053; 81003; 83690; 85027; 99281; 99284; J1885; J2270; J7030

== ENCOUNTER 2016-09-23 23:08 | Emergency (ER) | payer OTHER ==
[~2016-09-23] VITALS: Ht 180.3 cm; Wt 119.3 kg
[~2016-09-23 23:08] MED LIST changes: +FLEXERIL10 MG PO
[2016-09-23 23:49] LABS: HEMATOCRIT 32.1 % (38.0-50.0); MCH 27.7 PG (29.0-34.0); MEAN PLAT.VOLUME 10.7 uM^3 (9.0-12.4); PLATELET COUNT 178 K/uL (156-360); RBC DIS.WIDTH-CV 13.5 % (11.8-14.6); RBC DIS.WIDTH-SD 41.5 % (39-53); RED BLOOD COUNT 3.82 M/uL (4.00-5.50); WHITE BLOOD COUNT 6.9 K/uL (4.1-10.2)
[2016-09-24 00:01] LABS: CHLORIDE 105 mEq/L (99-109); SODIUM 135 mEq/L (136-147)
[2016-09-24 00:03] LABS: GLUCOSE 341 mg/dL (70-99)
[2016-09-24 00:05] LABS: ANION GAP 9 MEQ/L (2-14); TOTAL BILIRUBIN 0.2 mg/dL (0.0-1.0)
[2016-09-24 00:07] LABS: ALKALINE PHOSPHATASE 100 IU/L (3-129); GFR ESTIMATE (CALCULATED) 36 mL/min/
[2016-09-24 00:08] LABS: UREA NITROGEN (BUN) 34 mg/dL (9-23)
[2016-09-24 00:10] LABS: LIPASE 42 U/L (1.0-51.0)
[2016-09-24 00:14] LABS: ADD MIUA? YES; BILIRUBIN NEGATIVE; BLOOD SMALL; COLOR YELLOW ((YELLOW)); GLUCOSE (STRIP) >=500; KETONES NEGATIVE; LEUKOCYTES NEGATIVE; NITRITE NEGATIVE; PROTEIN (STRIP) 100; SPECIFIC GRAVITY 1.013 (1.000-1.030); UROBILINOGEN 0.2 MG/DL (0.2-1.0)
[2016-09-24 00:19] LABS: BACTERIA NONE SEEN /HPF; EPITHELIAL CELLS RARE /HPF; MUCUS TRACE /LPF; RED BLOOD CELLS 0-5 /HPF (0-5); UCUL ADDED? NO; WHITE BLOOD CELLS 0-5 /HPF (0-5)
[2016-09-24] MEDS ORDERED: ZOFRAN8 MG PO (03:27)
[2016-09-24] MEDS ORDERED: BENTYL20 MG PO (03:27)
[2016-09-24 03:35] LABS: POINT-OF-CARE METER ID UU13113702
[2016-09-24 04:00] VITALS: BP 142/57
== END 2016-09-24 04:05 | disposition home or self-care (01) ==
LOC: EME 23:08
PROVIDERS: Emergency Medicine
DX: R10.12 Left upper quadrant pain (principal); E11.65 Type 2 diabetes mellitus with hyperglycemia; I12.9 Hypertensive chronic kidney disease with stage 1 through stage 4 chronic kidney disease, or unspecified chronic kidney disease; N18.9 Chronic kidney disease, unspecified; D64.9 Anemia, unspecified; R11.2 Nausea with vomiting, unspecified; J44.9 Chronic obstructive pulmonary disease, unspecified; K21.9 Gastro-esophageal reflux disease without esophagitis; E78.5 Hyperlipidemia, unspecified; I25.2 Old myocardial infarction; Z90.49 Acquired absence of other specified parts of digestive tract; Z79.4 Long term (current) use of insulin; Z79.82 Long term (current) use of aspirin; Z87.891 Personal history of nicotine dependence
CPT/HCPCS: 74176; 80053; 81003; 82948; 83605; 83690; 85027; 99281; 99285; J2405; J7030

== ENCOUNTER 2016-10-11 19:14 | Emergency (ER) | payer OTHER ==
[~2016-10-11] VITALS: Ht 180.3 cm; Wt 123.6 kg
[~2016-10-11 19:14] MED LIST changes: +BENTYL20 MG PO; +ZOFRAN8 MG PO
[2016-10-11 20:43] LABS: CHLORIDE 98 mEq/L (99-109); POTASSIUM 5.5 mEq/L (3.7-5.4); SODIUM 129 mEq/L (136-147)
[2016-10-11 20:47] LABS: ANION GAP 13 MEQ/L (2-14)
[2016-10-11 20:48] LABS: TOTAL BILIRUBIN 0.3 mg/dL (0.0-1.0)
[2016-10-11 20:49] LABS: ALKALINE PHOSPHATASE 110 IU/L (3-129); GFR ESTIMATE (CALCULATED) 34 mL/min/
[2016-10-11 20:50] LABS: UREA NITROGEN (BUN) 25 mg/dL (9-23)
[2016-10-11 20:51] LABS: HEMATOCRIT 33.5 % (38.0-50.0); MCH 27.4 PG (29.0-34.0); MCHC 33.1 G/DL (30.0-36.0); MCV 82.7 FL (86-99); RBC DIS.WIDTH-SD 39.3 % (39-53); RED BLOOD COUNT 4.05 M/uL (4.00-5.50); WHITE BLOOD COUNT 5.7 K/uL (4.1-10.2)
[2016-10-11 20:53] LABS: LIPASE 68 U/L (1.0-51.0)
[2016-10-11 20:55] LABS: GLUCOSE 696 mg/dL (70-99)
[2016-10-11 22:01] LABS: ADD MIUA? NO; BILIRUBIN NEGATIVE; BLOOD NEGATIVE; COLOR STRAW ((YELLOW)); GLUCOSE (STRIP) >=500; KETONES NEGATIVE; LEUKOCYTES NEGATIVE; NITRITE NEGATIVE; PROTEIN (STRIP) NEGATIVE; SPECIFIC GRAVITY 1.016 (1.000-1.030); UCUL ADDED? NO; UROBILINOGEN 0.2 MG/DL (0.2-1.0)
[2016-10-11 22:05] LABS: IMM.PLATELET FRACTION 7.3 (1-7); MEAN PLAT.VOLUME 11.4 uM^3 (9.0-12.4); PLATELET COUNT 80 K/uL (156-360)
[2016-10-11 22:30] LABS: POINT-OF-CARE METER ID UU13113747
[2016-10-11 23:36] LABS: EOSINOPHIL (%) 3.2 % (0-5); EOSINOPHIL COUNT 0.2 K/uL (0-0.3); HEMATOCRIT 28.8 % (38.0-50.0); IMMATURE GRANULOCYTE (%) 0.4 % (0.0-0.7); INSTRUMENT ABS NEUTROPHIL CT 3.3 K/uL; LYMPHOCYTE COUNT 1.8 K/uL (1.0-2.8); MCH 27.4 PG (29.0-34.0); MCHC 33.3 G/DL (30.0-36.0); MCV 82.1 FL (86-99); MEAN PLAT.VOLUME 10.1 uM^3 (9.0-12.4); MONOCYTE (%) 6.3 % (3-12); MONOCYTE COUNT 0.4 K/uL (0-0.8); NEUTROPHIL (%) 58.6 % (45-76); NEUTROPHIL COUNT 3.3 K/uL (1.8-6.4); PLATELET COUNT 161 K/uL (156-360); RBC DIS.WIDTH-SD 38.7 % (39-53); RED BLOOD COUNT 3.51 M/uL (4.00-5.50); WHITE BLOOD COUNT 5.7 K/uL (4.1-10.2)
[2016-10-11 23:38] LABS: CARBON DIOXIDE (BICARBONATE) 25.1 MEQ/L (20-31)
[2016-10-12 00:41] LABS: ANION GAP 12 MEQ/L (2-14); CHLORIDE 101 MEQ/L (99-109); POTASSIUM 4.6 MEQ/L (3.7-5.4); SAMPLE HEMOLYSIS CHECK 0; SAMPLE ICTERIC CHECK 0; SAMPLE LIPEMIA CHECK 0; SODIUM 131 MEQ/L (136-147)
[2016-10-12 01:38] LABS: GFR ESTIMATE (CALCULATED) 43 mL/min/; GLUCOSE 470 mg/dL (70-99); UREA NITROGEN (BUN) 26 mg/dL (9-23)
[2016-10-12 02:43] VITALS: BP 142/65
[2016-10-12 02:51] LABS: POINT-OF-CARE METER ID UU13113747
== END 2016-10-12 02:52 | disposition home or self-care (01) ==
LOC: EME 19:14
PROVIDERS: Emergency Medicine
DX: R10.12 Left upper quadrant pain (principal); E11.65 Type 2 diabetes mellitus with hyperglycemia; T38.3X6A Underdosing of insulin and oral hypoglycemic [antidiabetic] drugs, initial encounter; Z91.120 Patient's intentional underdosing of medication regimen due to financial hardship; N17.9 Acute kidney failure, unspecified; E11.22 Type 2 diabetes mellitus with diabetic chronic kidney disease; Z79.4 Long term (current) use of insulin; I13.0 Hypertensive heart and chronic kidney disease with heart failure and stage 1 through stage 4 chronic kidney disease, or unspecified chronic kidney disease; N18.9 Chronic kidney disease, unspecified; I50.9 Heart failure, unspecified; E86.0 Dehydration; K85.90 Acute pancreatitis without necrosis or infection, unspecified; J44.9 Chronic obstructive pulmonary disease, unspecified; E78.5 Hyperlipidemia, unspecified; K21.9 Gastro-esophageal reflux disease without esophagitis; D64.9 Anemia, unspecified; E03.9 Hypothyroidism, unspecified; G47.30 Sleep apnea, unspecified; Z99.81 Dependence on supplemental oxygen; F32.9 Major depressive disorder, single episode, unspecified; F41.9 Anxiety disorder, unspecified; I25.2 Old myocardial infarction; Z86.73 Personal history of transient ischemic attack (TIA), and cerebral infarction without residual deficits; Z87.891 Personal history of nicotine dependence; Z88.0 Allergy status to penicillin
CPT/HCPCS: 74176; 80048; 80053; 81003; 82010; 82803; 82948; 83605; 83690; 85025; 85027; 99281; 99285; J2270; J7030; J7040

== ENCOUNTER 2016-10-27 09:13 | Inpatient (IN) | payer OTHER ==
[~2016-10-27] VITALS: Ht 180.3 cm; Wt 124.8 kg
[2016-10-27 10:23] LABS: BASOPHIL COUNT 0.1 K/uL (0-0.1); EOSINOPHIL (%) 3.9 % (0-5); EOSINOPHIL COUNT 0.3 K/uL (0-0.3); HEMATOCRIT 31.5 % (38.0-50.0); IMMATURE GRANULOCYTE (%) 0.6 % (0.0-0.7); INSTRUMENT ABS NEUTROPHIL CT 3.5 K/uL; LYMPHOCYTE COUNT 2.4 K/uL (1.0-2.8); MCH 27.5 PG (29.0-34.0); MCHC 32.7 G/DL (30.0-36.0); MEAN PLAT.VOLUME 10.3 uM^3 (9.0-12.4); MONOCYTE (%) 7.3 % (3-12); MONOCYTE COUNT 0.5 K/uL (0-0.8); NEUTROPHIL (%) 51.6 % (45-76); NEUTROPHIL COUNT 3.5 K/uL (1.8-6.4); PLATELET COUNT 129 K/uL (156-360); RBC DIS.WIDTH-CV 13.1 % (11.8-14.6); RBC DIS.WIDTH-SD 39.6 % (39-53); RED BLOOD COUNT 3.75 M/uL (4.00-5.50); WHITE BLOOD COUNT 6.7 K/uL (4.1-10.2)
[2016-10-27 10:35] LABS: CHLORIDE 102 mEq/L (99-109); POTASSIUM 4.9 mEq/L (3.7-5.4); SODIUM 134 mEq/L (136-147)
[2016-10-27 10:39] LABS: ANION GAP 9 MEQ/L (2-14); TOTAL BILIRUBIN 0.3 mg/dL (0.0-1.0)
[2016-10-27 10:41] LABS: ALKALINE PHOSPHATASE 112 IU/L (3-129); GFR ESTIMATE (CALCULATED) 43 mL/min/
[2016-10-27 10:42] LABS: UREA NITROGEN (BUN) 25 mg/dL (9-23)
[2016-10-27 10:43] LABS: ADD MIUA? NO; BILIRUBIN NEGATIVE; BLOOD NEGATIVE; COLOR STRAW ((YELLOW)); GLUCOSE (STRIP) >=500; KETONES NEGATIVE; LEUKOCYTES NEGATIVE; NITRITE NEGATIVE; PROTEIN (STRIP) NEGATIVE; SPECIFIC GRAVITY 1.016 (1.000-1.030); UROBILINOGEN 0.2 MG/DL (0.2-1.0)
[2016-10-27 10:44] LABS: LIPASE 266 U/L (1.0-51.0)
[2016-10-27 10:45] LABS: GLUCOSE 468 mg/dL (70-99)
[2016-10-27 13:56] LABS: POINT-OF-CARE METER ID UU14100415
[2016-10-27 16:03] VITALS: BP 191/81
[2016-10-27 18:54] LABS: ANION GAP 7 MEQ/L (2-14); CHLORIDE 103 MEQ/L (99-109); GFR ESTIMATE (CALCULATED) 59 mL/min/; GLUCOSE 310 mg/dL (70-99); POTASSIUM 4.5 MEQ/L (3.7-5.4); SAMPLE HEMOLYSIS CHECK 0; SAMPLE ICTERIC CHECK 0; SAMPLE LIPEMIA CHECK 0; SODIUM 135 MEQ/L (136-147); UREA NITROGEN (BUN) 22 mg/dL (9-23)
[2016-10-27 19:38] VITALS: BP 173/79
[2016-10-27 20:41] VITALS: BP 154/78
[2016-10-27 23:56] VITALS: BP 141/67
[2016-10-28 04:21] VITALS: BP 154/69
[2016-10-28 05:24] LABS: POINT-OF-CARE METER ID UU14174225
[2016-10-28 07:34] LABS: HEMATOCRIT 30.4 % (38.0-50.0); MCH 27.8 PG (29.0-34.0); MCHC 32.2 G/DL (30.0-36.0); MCV 86.1 FL (86-99); MEAN PLAT.VOLUME 10.7 uM^3 (9.0-12.4); PLATELET COUNT 134 K/uL (156-360); RBC DIS.WIDTH-CV 13.4 % (11.8-14.6); RBC DIS.WIDTH-SD 41.5 % (39-53); RED BLOOD COUNT 3.53 M/uL (4.00-5.50); WHITE BLOOD COUNT 7.4 K/uL (4.1-10.2)
[2016-10-28 07:40] VITALS: BP 147/71
[2016-10-28 08:32] LABS: ALKALINE PHOSPHATASE 92 IU/L (3-129); ANION GAP 10 MEQ/L (2-14); CHLORIDE 104 MEQ/L (99-109); GFR ESTIMATE (CALCULATED) 54 mL/min/; GLUCOSE 202 mg/dL (70-99); POTASSIUM 4.5 MEQ/L (3.7-5.4); SAMPLE HEMOLYSIS CHECK 0; SAMPLE ICTERIC CHECK 0; SAMPLE LIPEMIA CHECK 0; SODIUM 135 MEQ/L (136-147); TOTAL BILIRUBIN 0.3 MG/DL (0.0-1.0); UREA NITROGEN (BUN) 21 mg/dL (9-23)
[2016-10-28 12:09] LABS: POINT-OF-CARE METER ID UU13113717
[2016-10-28 15:49] VITALS: BP 151/80
[2016-10-28 17:18] LABS: POINT-OF-CARE METER ID UU14174225
[2016-10-28 20:41] LABS: POINT-OF-CARE METER ID UU14174225
[2016-10-29 00:04] VITALS: BP 127/63
[2016-10-29 07:01] LABS: HEMATOCRIT 29.5 % (38.0-50.0); MCH 28.1 PG (29.0-34.0); MCHC 32.5 G/DL (30.0-36.0); MCV 86.3 FL (86-99); MEAN PLAT.VOLUME 10.9 uM^3 (9.0-12.4); PLATELET COUNT 126 K/uL (156-360); RBC DIS.WIDTH-CV 13.4 % (11.8-14.6); RBC DIS.WIDTH-SD 41.7 % (39-53); RED BLOOD COUNT 3.42 M/uL (4.00-5.50); WHITE BLOOD COUNT 6.6 K/uL (4.1-10.2)
[2016-10-29 07:28] LABS: ANION GAP 7 MEQ/L (2-14); CHLORIDE 102 MEQ/L (99-109); GFR ESTIMATE (CALCULATED) 38 mL/min/; GLUCOSE 260 mg/dL (70-99); POTASSIUM 5.4 MEQ/L (3.7-5.4); SAMPLE HEMOLYSIS CHECK 0; SAMPLE ICTERIC CHECK 0; SAMPLE LIPEMIA CHECK 0; SODIUM 132 MEQ/L (136-147); UREA NITROGEN (BUN) 28 mg/dL (9-23)
[2016-10-29 07:51] LABS: POINT-OF-CARE METER ID UU14174225
[2016-10-29 08:31] VITALS: BP 153/72
[2016-10-29] MEDS ORDERED: ZESTRIL5 MG PO (12:36)
[2016-10-29] MEDS ORDERED: ENDOCET 5-3251 EACH PO (12:37)
[2016-10-29 15:39] LABS: ANION GAP 9 MEQ/L (2-14); CHLORIDE 104 MEQ/L (99-109); GFR ESTIMATE (CALCULATED) 46 mL/min/; GLUCOSE 234 mg/dL (70-99); POTASSIUM 5.6 MEQ/L (3.7-5.4); SAMPLE HEMOLYSIS CHECK 0; SAMPLE ICTERIC CHECK 0; SAMPLE LIPEMIA CHECK 0; SODIUM 133 MEQ/L (136-147); UREA NITROGEN (BUN) 29 mg/dL (9-23)
[2016-10-29 16:07] VITALS: BP 153/67
[2016-10-29 17:24] LABS: POINT-OF-CARE METER ID UU13113717
[2016-10-29 21:15] LABS: POINT-OF-CARE METER ID UU14174225
[2016-10-30] VITALS: BP 135/60
[2016-10-30 06:49] LABS: ANION GAP 9 MEQ/L (2-14); CHLORIDE 107 MEQ/L (99-109); GFR ESTIMATE (CALCULATED) 54 mL/min/; GLUCOSE 155 mg/dL (70-99); POTASSIUM 5.2 MEQ/L (3.7-5.4); SAMPLE HEMOLYSIS CHECK 0; SAMPLE ICTERIC CHECK 0; SAMPLE LIPEMIA CHECK 0; SODIUM 138 MEQ/L (136-147); UREA NITROGEN (BUN) 29 mg/dL (9-23)
[2016-10-30 07:50] VITALS: BP 168/77
[2016-10-30] MEDS ORDERED: BENTYL20 MG PO (09:17)
[2016-10-30] MEDS ORDERED: LEVEMIR FL100 UNIT/1 SC ×2 (09:19→13:01)
[2016-10-30] MEDS ORDERED: ENDOCET 5-3251 EACH PO (10:59)
[2016-10-30 12:53] LABS: POINT-OF-CARE METER ID UU13113717
== END 2016-10-30 13:26 | disposition home or self-care (01) | DRG 439 ==
LOC: EME 09:13 → ENRESERV 13:05 → 5SOUTH 13:24 → EDOF 13:24 → ENRESERV 13:35 → 5SOUTH 14:25
PROVIDERS: Emergency Medicine; Hospitalist; Nurse Practitioner Adult Health
DX: K85.90 Acute pancreatitis without necrosis or infection, unspecified (principal); J96.10 Chronic respiratory failure, unspecified whether with hypoxia or hypercapnia; I13.0 Hypertensive heart and chronic kidney disease with heart failure and stage 1 through stage 4 chronic kidney disease, or unspecified chronic kidney disease; E11.65 Type 2 diabetes mellitus with hyperglycemia; D69.6 Thrombocytopenia, unspecified; E11.22 Type 2 diabetes mellitus with diabetic chronic kidney disease; J44.9 Chronic obstructive pulmonary disease, unspecified; N18.3 Chronic kidney disease, stage 3 (moderate); E78.5 Hyperlipidemia, unspecified; G47.33 Obstructive sleep apnea (adult) (pediatric); K21.9 Gastro-esophageal reflux disease without esophagitis; E03.9 Hypothyroidism, unspecified; E87.1 Hypo-osmolality and hyponatremia; E87.5 Hyperkalemia; I50.9 Heart failure, unspecified; I25.10 Atherosclerotic heart disease of native coronary artery without angina pectoris; E66.9 Obesity, unspecified; Z86.73 Personal history of transient ischemic attack (TIA), and cerebral infarction without residual deficits; Z79.4 Long term (current) use of insulin; Z68.38 Body mass index [BMI] 38.0-38.9, adult; Z90.49 Acquired absence of other specified parts of digestive tract
CPT/HCPCS: 71010; 74176; 80048; 80048 91; 80053; 81003; 82948; 83690; 85025; 85027; 93005; 94640; 94640 76; 94799; 99202; 99281; 99285; J1644; J1815; J2270; J2405; J7030; J7120

== ENCOUNTER 2016-11-06 19:04 | Emergency (ER) | payer OTHER ==
[~2016-11-06] VITALS: Ht 180.3 cm; Wt 132.5 kg
[~2016-11-06 19:04] MED LIST changes: +ENDOCET 5-3251 EACH PO; +ZESTRIL5 MG PO
[2016-11-06 20:18] LABS: CHLORIDE 106 mEq/L (99-109); POTASSIUM 5.1 mEq/L (3.7-5.4); SODIUM 138 mEq/L (136-147)
[2016-11-06 20:19] LABS: GLUCOSE 373 mg/dL (70-99)
[2016-11-06 20:21] LABS: ANION GAP 10 MEQ/L (2-14)
[2016-11-06 20:23] LABS: GFR ESTIMATE (CALCULATED) 50 mL/min/
[2016-11-06 20:24] LABS: UREA NITROGEN (BUN) 21 mg/dL (9-23)
[2016-11-06 20:46] LABS: HEMATOCRIT 28.4 % (38.0-50.0); MCH 27.7 PG (29.0-34.0); MCV 86.6 FL (86-99); MEAN PLAT.VOLUME 10.2 uM^3 (9.0-12.4); PLATELET COUNT 108 K/uL (156-360); RBC DIS.WIDTH-CV 13.2 % (11.8-14.6); RBC DIS.WIDTH-SD 41.4 % (39-53); RED BLOOD COUNT 3.28 M/uL (4.00-5.50); WHITE BLOOD COUNT 6.5 K/uL (4.1-10.2)
[2016-11-06] MEDS ORDERED: LEVAQUIN750 MG PO (21:14)
[2016-11-06 22:10] VITALS: BP 160/59
== END 2016-11-06 22:12 | disposition home or self-care (01) ==
LOC: EME → EDBD 19:04 → EME 19:04
PROVIDERS: Emergency Medicine
DX: J44.0 Chronic obstructive pulmonary disease with (acute) lower respiratory infection (principal); J18.9 Pneumonia, unspecified organism; Z99.81 Dependence on supplemental oxygen; E11.22 Type 2 diabetes mellitus with diabetic chronic kidney disease; I12.9 Hypertensive chronic kidney disease with stage 1 through stage 4 chronic kidney disease, or unspecified chronic kidney disease; N18.9 Chronic kidney disease, unspecified; Z79.4 Long term (current) use of insulin; E78.5 Hyperlipidemia, unspecified; Z87.891 Personal history of nicotine dependence; F41.9 Anxiety disorder, unspecified; F32.9 Major depressive disorder, single episode, unspecified; G47.30 Sleep apnea, unspecified; I25.2 Old myocardial infarction; K21.9 Gastro-esophageal reflux disease without esophagitis; Z88.0 Allergy status to penicillin; Z88.6 Allergy status to analgesic agent
CPT/HCPCS: 71020; 80048; 85027; 85027 GA; 99281; 99284

== ENCOUNTER 2016-11-07 07:57 | Inpatient (IN) | payer OTHER ==
[~2016-11-07] VITALS: Ht 180.3 cm; Wt 131.2 kg
[2016-11-07 08:30] LABS: HEMATOCRIT 26.4 % (38.0-50.0); MCH 27.6 PG (29.0-34.0); MCHC 32.2 G/DL (30.0-36.0); MCV 85.7 FL (86-99); MEAN PLAT.VOLUME 9.8 uM^3 (9.0-12.4); PLATELET COUNT 114 K/uL (156-360); RBC DIS.WIDTH-CV 13.3 % (11.8-14.6); RBC DIS.WIDTH-SD 41.5 % (39-53); RED BLOOD COUNT 3.08 M/uL (4.00-5.50); WHITE BLOOD COUNT 7.5 K/uL (4.1-10.2)
[2016-11-07 08:41] LABS: CHLORIDE 107 mEq/L (99-109); POTASSIUM 4.7 mEq/L (3.7-5.4); SODIUM 138 mEq/L (136-147)
[2016-11-07 08:43] LABS: GLUCOSE 263 mg/dL (70-99)
[2016-11-07 08:44] LABS: ANION GAP 8 MEQ/L (2-14)
[2016-11-07 08:45] LABS: TOTAL BILIRUBIN 0.3 mg/dL (0.0-1.0)
[2016-11-07 08:46] LABS: ALKALINE PHOSPHATASE 76 IU/L (3-129)
[2016-11-07 08:47] LABS: GFR ESTIMATE (CALCULATED) 54 mL/min/
[2016-11-07 08:48] LABS: UREA NITROGEN (BUN) 18 mg/dL (9-23)
[2016-11-07 08:53] LABS: TROP-I INTERPRETATION NEGATIVE; TROPONIN-I < 0.01 ng/mL (0.0-0.30)
[2016-11-07 13:30] VITALS: BP 176/72
[2016-11-07 16:22] VITALS: BP 175/70
[2016-11-07 19:50] VITALS: BP 173/75
[2016-11-07 23:24] VITALS: BP 152/71
[2016-11-08 06:09] LABS: EOSINOPHIL (%) 3.9 % (0-5); EOSINOPHIL COUNT 0.3 K/uL (0-0.3); HEMATOCRIT 26.7 % (38.0-50.0); IMMATURE GRANULOCYTE (%) 0.5 % (0.0-0.7); INSTRUMENT ABS NEUTROPHIL CT 4.2 K/uL; LYMPHOCYTE COUNT 1.6 K/uL (1.0-2.8); MCH 27.3 PG (29.0-34.0); MCHC 31.8 G/DL (30.0-36.0); MCV 85.9 FL (86-99); MEAN PLAT.VOLUME 10.5 uM^3 (9.0-12.4); MONOCYTE (%) 7.5 % (3-12); MONOCYTE COUNT 0.5 K/uL (0-0.8); NEUTROPHIL (%) 63.8 % (45-76); NEUTROPHIL COUNT 4.2 K/uL (1.8-6.4); PLATELET COUNT 132 K/uL (156-360); RBC DIS.WIDTH-CV 13.3 % (11.8-14.6); RBC DIS.WIDTH-SD 41.4 % (39-53); RED BLOOD COUNT 3.11 M/uL (4.00-5.50); WHITE BLOOD COUNT 6.6 K/uL (4.1-10.2)
[2016-11-08 06:40] LABS: ALKALINE PHOSPHATASE 65 IU/L (3-129); ANION GAP 9 MEQ/L (2-14); CHLORIDE 107 MEQ/L (99-109); DIRECT BILIRUBIN 0.1 mg/dL (0.0-0.3); GFR ESTIMATE (CALCULATED) 54 mL/min/; GLUCOSE 148 mg/dL (70-99); POTASSIUM 5.5 MEQ/L (3.7-5.4); SAMPLE HEMOLYSIS CHECK 0; SAMPLE ICTERIC CHECK 0; SAMPLE LIPEMIA CHECK 0; SODIUM 140 MEQ/L (136-147); TOTAL BILIRUBIN 0.4 MG/DL (0.0-1.0); UREA NITROGEN (BUN) 19 mg/dL (9-23)
[2016-11-08 08:19] VITALS: BP 163/72
[2016-11-08 08:20] LABS: INTERNAL CONTROL VALID? YES
[2016-11-08 15:28] LABS: ANION GAP 11 MEQ/L (2-14); CHLORIDE 105 MEQ/L (99-109); GFR ESTIMATE (CALCULATED) 43 mL/min/; SAMPLE HEMOLYSIS CHECK 0; SAMPLE ICTERIC CHECK 0; SAMPLE LIPEMIA CHECK 0; SODIUM 134 MEQ/L (136-147); UREA NITROGEN (BUN) 20 mg/dL (9-23)
[2016-11-08 15:29] LABS: GLUCOSE 242 mg/dL (70-99)
[2016-11-08 16:25] VITALS: BP 191/83
[2016-11-08 17:47] VITALS: BP 174/78
[2016-11-08 23:06] VITALS: BP 177/74
[2016-11-09 04:00] VITALS: BP 169/81
[2016-11-09 07:00] VITALS: BP 181/77
[2016-11-09 07:27] LABS: IRON 53 MCG/DL (35-150)
[2016-11-09 08:03] LABS: FERRITIN 77 NG/ML (22-322)
[2016-11-09 08:36] LABS: HEMATOCRIT 25.5 % (38.0-50.0); MCH 27.8 PG (29.0-34.0); MCHC 32.2 G/DL (30.0-36.0); MCV 86.4 FL (86-99); MEAN PLAT.VOLUME 10.3 uM^3 (9.0-12.4); PLATELET COUNT 147 K/uL (156-360); RBC DIS.WIDTH-CV 13.3 % (11.8-14.6); RBC DIS.WIDTH-SD 41.6 % (39-53); RED BLOOD COUNT 2.95 M/uL (4.00-5.50); WHITE BLOOD COUNT 7.4 K/uL (4.1-10.2)
[2016-11-09 08:48] LABS: ANION GAP 13 MEQ/L (2-14); CHLORIDE 107 MEQ/L (99-109); GFR ESTIMATE (CALCULATED) 40 mL/min/; GLUCOSE 197 mg/dL (70-99); POTASSIUM 5.2 MEQ/L (3.7-5.4); SODIUM 140 MEQ/L (136-147); UREA NITROGEN (BUN) 24 mg/dL (9-23)
[2016-11-09 14:15] VITALS: BP 160/70
[2016-11-09 14:48] LABS: POC NON-PRINT COM 1 ND
[2016-11-09 21:06] LABS: POINT-OF-CARE METER ID UU13113725
[2016-11-09 23:25] VITALS: BP 179/80
[2016-11-10 07:00] VITALS: BP 134/63
[2016-11-10 08:10] LABS: POINT-OF-CARE METER ID UU13113725
[2016-11-10 10:41] LABS: HEMATOCRIT 25.8 % (38.0-50.0); MCH 28.3 PG (29.0-34.0); MCHC 32.9 G/DL (30.0-36.0); MEAN PLAT.VOLUME 11.5 uM^3 (9.0-12.4); RBC DIS.WIDTH-CV 13.5 % (11.8-14.6); WHITE BLOOD COUNT 7.3 K/uL (4.1-10.2)
[2016-11-10 10:55] LABS: PLATELET COUNT 238 K/uL (156-360)
[2016-11-10 11:05] LABS: ANION GAP 11 MEQ/L (2-14); CHLORIDE 108 MEQ/L (99-109); GFR ESTIMATE (CALCULATED) 46 mL/min/; GLUCOSE 181 mg/dL (70-99); POTASSIUM 5.1 MEQ/L (3.7-5.4); SAMPLE HEMOLYSIS CHECK 0; SAMPLE ICTERIC CHECK 0; SAMPLE LIPEMIA CHECK 0; SODIUM 139 MEQ/L (136-147); UREA NITROGEN (BUN) 31 mg/dL (9-23)
[2016-11-10 11:27] LABS: POINT-OF-CARE METER ID UU13113725
[2016-11-10] MEDS ORDERED: LEVOFLOXACIN750 MG PO (11:45)
[2016-11-10] MEDS ORDERED: Vitamin B-12 PO (11:45)
[2016-11-10] MEDS ORDERED: AMLODIPINE BESY10 MG PO (11:45)
== END 2016-11-10 15:07 | disposition home or self-care (01) | DRG 190 ==
LOC: EME 07:57 → EDOF 11:34 → 5EAST 11:34 → ENRESERV 11:38 → EDOF 11:38 → ENRESERV 12:37 → 5EAST 13:23 → ENPENDDIS 11-10 → EDPENDDISTM 11-10 15:00 → 5EAST 11-10 15:07
PROVIDERS: Emergency Medicine; Hospitalist; Physician Assistant
DX: J44.0 Chronic obstructive pulmonary disease with (acute) lower respiratory infection (principal); J18.9 Pneumonia, unspecified organism; J90 Pleural effusion, not elsewhere classified; J96.10 Chronic respiratory failure, unspecified whether with hypoxia or hypercapnia; N17.9 Acute kidney failure, unspecified; I13.0 Hypertensive heart and chronic kidney disease with heart failure and stage 1 through stage 4 chronic kidney disease, or unspecified chronic kidney disease; Z68.41 Body mass index [BMI] 40.0-44.9, adult; F33.9 Major depressive disorder, recurrent, unspecified; G47.33 Obstructive sleep apnea (adult) (pediatric); D64.9 Anemia, unspecified; E03.9 Hypothyroidism, unspecified; E11.22 Type 2 diabetes mellitus with diabetic chronic kidney disease; N40.0 Benign prostatic hyperplasia without lower urinary tract symptoms; I27.2 Other secondary pulmonary hypertension; N18.9 Chronic kidney disease, unspecified; K21.9 Gastro-esophageal reflux disease without esophagitis; I50.9 Heart failure, unspecified; F41.9 Anxiety disorder, unspecified; E78.5 Hyperlipidemia, unspecified; E87.5 Hyperkalemia; M19.90 Unspecified osteoarthritis, unspecified site; E66.01 Morbid (severe) obesity due to excess calories; Z87.891 Personal history of nicotine dependence; Z79.4 Long term (current) use of insulin; Z90.49 Acquired absence of other specified parts of digestive tract; Z79.82 Long term (current) use of aspirin; Z86.73 Personal history of transient ischemic attack (TIA), and cerebral infarction without residual deficits; Z99.81 Dependence on supplemental oxygen; Z88.5 Allergy status to narcotic agent; I25.2 Old myocardial infarction; Z82.49 Family history of ischemic heart disease and other diseases of the circulatory system
CPT/HCPCS: 71020; 71275; 80048; 80048 91; 80053; 80076; 82272; 82607; 82728; 82746; 82948; 83540; 83605; 83880; 84466; 84484; 85025; 85027; 85027 GA; 87040; 87070; 87205; 87449; 93005; 93306; 94640; 94640 76; 94667; 94668; 99202; 99281; 99284; 99285; J1644; J1815; J1956; J3370; J7030; J7040; J7512

== ENCOUNTER 2016-11-18 15:48 | Inpatient (IN) | payer OTHER ==
[~2016-11-18] VITALS: Ht 180.3 cm; Wt 132.8 kg
[~2016-11-18 15:48] MED LIST changes: +Vitamin B-12 PO
[2016-11-18 17:04] LABS: HEMATOCRIT 28.3 % (38.0-50.0); INTER. NORMALIZED RATIO 1.1; MCH 27.3 PG (29.0-34.0); MCHC 30.7 G/DL (30.0-36.0); MCV 88.7 FL (86-99); PROTHROMBIN TIME 12.4 SEC (10.2-12.9); RBC DIS.WIDTH-CV 13.4 % (11.8-14.6); RBC DIS.WIDTH-SD 43.8 % (39-53); RED BLOOD COUNT 3.19 M/uL (4.00-5.50); WHITE BLOOD COUNT 7.3 K/uL (4.1-10.2)
[2016-11-18 17:08] LABS: CHLORIDE 111 mEq/L (99-109); POTASSIUM 4.8 mEq/L (3.7-5.4); SODIUM 139 mEq/L (136-147)
[2016-11-18 17:10] LABS: GLUCOSE 224 mg/dL (70-99)
[2016-11-18 17:11] LABS: ANION GAP 11 MEQ/L (2-14)
[2016-11-18 17:12] LABS: TOTAL BILIRUBIN 0.2 mg/dL (0.0-1.0)
[2016-11-18 17:13] LABS: SERUM ETHYL ALCOHOL < 10 mg/dL
[2016-11-18 17:14] LABS: ALKALINE PHOSPHATASE 64 IU/L (3-129); GFR ESTIMATE (CALCULATED) 40 mL/min/
[2016-11-18 17:15] LABS: UREA NITROGEN (BUN) 40 mg/dL (9-23)
[2016-11-18 17:17] LABS: LIPASE 27 U/L (1.0-51.0); TROP-I INTERPRETATION NEGATIVE; TROPONIN-I < 0.01 ng/mL (0.0-0.30)
[2016-11-18 18:14] LABS: MEAN PLAT.VOLUME 10.4 uM^3 (9.0-12.4); PLAT.SUFFICIENCY DECREASED
[2016-11-18 18:22] LABS: PLATELET COUNT 117 K/uL (156-360)
[2016-11-18 18:56] LABS: BASE EXCESS -6.8 mEq/L (-3 to +3); BICARBONATE 19.7 mEq/L (22-26); CARBOXY HGB 1.7 % (0-5); METHEMOGLOBIN 0.8 % (0-1.5); PCO2 43 mm Hg (35-45); PO2 79 mm Hg (80-100); SITE LR
[2016-11-18 18:57] LABS: COMMENTS - BLOOD GASES A+C+; DEVICE RA; TOTAL RESP RATE 14 resp/min; pH 7.27 (7.35-7.45)
[2016-11-18] MEDS ORDERED: KLONOPIN0.5 M1 PO (20:30)
[2016-11-18] MEDS ORDERED: VITAMIN B-12500 MC5 SL (20:32)
[2016-11-18 22:08] LABS: Estimated Average Glucose 301 mg/dL (70-123); HEMOGLOBIN A1c (GLYCOHEMOGLOB) 12.1 % HGB (Below 5.7)
[2016-11-18 22:09] VITALS: BP 130/59
[2016-11-18 22:13] LABS: HDL CHOLESTEROL 27 MG/DL (Desirable>=40); IRON 23 MCG/DL (35-150); LDL CHOLESTEROL 33 mg/dL (Desirable<100); NON-HDL CHOLESTEROL 47 mg/dL (Desirable<160); TOTAL CHOLESTEROL 74 mg/dL (Desirable<200); TRIGLYCERIDES 68 MG/DL (Normal: <150)
[2016-11-18 22:17] LABS: POINT-OF-CARE METER ID UU14188625
[2016-11-18 22:20] LABS: FERRITIN 45 NG/ML (22-322)
[2016-11-19 03:46] VITALS: BP 109/53
[2016-11-19 07:42] LABS: POINT-OF-CARE METER ID UU14188625
[2016-11-19 08:32] VITALS: BP 142/71
[2016-11-19 08:55] LABS: HEMATOCRIT 28.6 % (38.0-50.0); MCH 27.6 PG (29.0-34.0); MCHC 31.1 G/DL (30.0-36.0); MCV 88.8 FL (86-99); MEAN PLAT.VOLUME 10.2 uM^3 (9.0-12.4); PLATELET COUNT 130 K/uL (156-360); RBC DIS.WIDTH-CV 13.5 % (11.8-14.6); RBC DIS.WIDTH-SD 43.9 % (39-53); RED BLOOD COUNT 3.22 M/uL (4.00-5.50); WHITE BLOOD COUNT 7.1 K/uL (4.1-10.2)
[2016-11-19 09:18] LABS: ALKALINE PHOSPHATASE 61 IU/L (3-129); ANION GAP 7 MEQ/L (2-14); CHLORIDE 109 MEQ/L (99-109); GFR ESTIMATE (CALCULATED) 43 mL/min/; GLUCOSE 124 mg/dL (70-99); POTASSIUM 4.9 MEQ/L (3.7-5.4); SAMPLE HEMOLYSIS CHECK 0; SAMPLE ICTERIC CHECK 0; SAMPLE LIPEMIA CHECK 0; SODIUM 139 MEQ/L (136-147); TOTAL BILIRUBIN 0.3 MG/DL (0.0-1.0); UREA NITROGEN (BUN) 40 mg/dL (9-23)
[2016-11-19 16:06] VITALS: BP 125/62
[2016-11-19 19:38] VITALS: BP 136/56
[2016-11-19 21:36] LABS: POINT-OF-CARE METER ID UU14188625
[2016-11-19 23:41] VITALS: BP 139/64
[2016-11-20 03:49] VITALS: BP 133/62
[2016-11-20 06:12] LABS: EOSINOPHIL (%) 5.4 % (0-5); EOSINOPHIL COUNT 0.3 K/uL (0-0.3); HEMATOCRIT 25.8 % (38.0-50.0); IMMATURE GRANULOCYTE (%) 0.5 % (0.0-0.7); LYMPHOCYTE COUNT 1.8 K/uL (1.0-2.8); MCH 27.4 PG (29.0-34.0); MCHC 31.4 G/DL (30.0-36.0); MCV 87.2 FL (86-99); MEAN PLAT.VOLUME 10.2 uM^3 (9.0-12.4); MONOCYTE (%) 8.6 % (3-12); MONOCYTE COUNT 0.5 K/uL (0-0.8); PLATELET COUNT 130 K/uL (156-360); RBC DIS.WIDTH-CV 13.4 % (11.8-14.6); RBC DIS.WIDTH-SD 42.4 % (39-53); RED BLOOD COUNT 2.96 M/uL (4.00-5.50); WHITE BLOOD COUNT 5.7 K/uL (4.1-10.2)
[2016-11-20 06:52] LABS: ANION GAP 7 MEQ/L (2-14); CHLORIDE 109 MEQ/L (99-109); GFR ESTIMATE (CALCULATED) 46 mL/min/; GLUCOSE 108 mg/dL (70-99); POTASSIUM 5.8 MEQ/L (3.7-5.4); SAMPLE HEMOLYSIS CHECK 0; SAMPLE ICTERIC CHECK 0; SAMPLE LIPEMIA CHECK 0; SODIUM 138 MEQ/L (136-147); UREA NITROGEN (BUN) 42 mg/dL (9-23)
[2016-11-20 07:35] VITALS: BP 131/63
[2016-11-20 08:22] LABS: POINT-OF-CARE METER ID UU14188625
[2016-11-20 12:09] VITALS: BP 147/64
[2016-11-20 12:29] LABS: ANION GAP 7 MEQ/L (2-14); CHLORIDE 108 MEQ/L (99-109); GFR ESTIMATE (CALCULATED) 50 mL/min/; POTASSIUM 5.9 MEQ/L (3.7-5.4); SAMPLE HEMOLYSIS CHECK 0; SAMPLE ICTERIC CHECK 0; SAMPLE LIPEMIA CHECK 0; SODIUM 137 MEQ/L (136-147); UREA NITROGEN (BUN) 40 mg/dL (9-23)
[2016-11-20 12:31] LABS: GLUCOSE 216 mg/dL (70-99)
[2016-11-20 16:05] LABS: ANION GAP 6 MEQ/L (2-14); CHLORIDE 109 MEQ/L (99-109); GFR ESTIMATE (CALCULATED) 50 mL/min/; GLUCOSE 145 mg/dL (70-99); SAMPLE HEMOLYSIS CHECK 0; SAMPLE ICTERIC CHECK 0; SAMPLE LIPEMIA CHECK 0; SODIUM 138 MEQ/L (136-147); UREA NITROGEN (BUN) 39 mg/dL (9-23)
[2016-11-20 16:34] VITALS: BP 148/67
[2016-11-20 19:47] VITALS: BP 149/69
[2016-11-20 20:25] LABS: ANION GAP 9 MEQ/L (2-14); CHLORIDE 109 MEQ/L (99-109); GFR ESTIMATE (CALCULATED) 50 mL/min/; GLUCOSE 184 mg/dL (70-99); POTASSIUM 5.9 MEQ/L (3.7-5.4); SAMPLE HEMOLYSIS CHECK 0; SAMPLE ICTERIC CHECK 0; SAMPLE LIPEMIA CHECK 0; SODIUM 139 MEQ/L (136-147); UREA NITROGEN (BUN) 35 mg/dL (9-23)
[2016-11-20 21:20] LABS: POINT-OF-CARE METER ID UU14174225
[2016-11-20 22:33] LABS: POINT-OF-CARE METER ID UU14174225; POINT-OF-CARE USER ID 608261316
[2016-11-20 23:26] LABS: POINT-OF-CARE METER ID UU14174225; POINT-OF-CARE USER ID 608261316
[2016-11-20 23:30] VITALS: BP 154/62
[2016-11-21 03:39] VITALS: BP 133/71
[2016-11-21 06:32] LABS: EOSINOPHIL (%) 5.1 % (0-5); EOSINOPHIL COUNT 0.3 K/uL (0-0.3); IMMATURE GRANULOCYTE (%) 0.8 % (0.0-0.7); INSTRUMENT ABS NEUTROPHIL CT 2.5 K/uL; LYMPHOCYTE COUNT 1.7 K/uL (1.0-2.8); MCH 26.9 PG (29.0-34.0); MCHC 30.7 G/DL (30.0-36.0); MCV 87.4 FL (86-99); MEAN PLAT.VOLUME 10.4 uM^3 (9.0-12.4); MONOCYTE (%) 8.5 % (3-12); MONOCYTE COUNT 0.4 K/uL (0-0.8); NEUTROPHIL (%) 50.6 % (45-76); NEUTROPHIL COUNT 2.5 K/uL (1.8-6.4); PLATELET COUNT 132 K/uL (156-360); RBC DIS.WIDTH-CV 13.6 % (11.8-14.6); RBC DIS.WIDTH-SD 42.7 % (39-53); RED BLOOD COUNT 3.09 M/uL (4.00-5.50); WHITE BLOOD COUNT 4.9 K/uL (4.1-10.2)
[2016-11-21 07:00] LABS: ANION GAP 8 MEQ/L (2-14); CHLORIDE 110 MEQ/L (99-109); GFR ESTIMATE (CALCULATED) 46 mL/min/; GLUCOSE 137 mg/dL (70-99); POTASSIUM 5.6 MEQ/L (3.7-5.4); SAMPLE HEMOLYSIS CHECK 0; SAMPLE ICTERIC CHECK 0; SAMPLE LIPEMIA CHECK 0; SODIUM 142 MEQ/L (136-147); UREA NITROGEN (BUN) 37 mg/dL (9-23)
[2016-11-21 07:53] LABS: METH RESISTANT S AUREUS PCR POSITIVE (NEGATIVE)
[2016-11-21 07:55] LABS: PROBE CHECK PASS
[2016-11-21 08:16] VITALS: BP 135/63
[2016-11-21 08:42] LABS: POINT-OF-CARE METER ID UU14188625
[2016-11-21 12:36] LABS: POINT-OF-CARE METER ID UU14188625
[2016-11-21 12:42] VITALS: BP 152/62
[2016-11-21 13:49] LABS: INTERNAL CONTROL VALID? YES
[2016-11-21 16:07] VITALS: BP 143/67
[2016-11-21 17:10] LABS: POINT-OF-CARE METER ID UU14188625
[2016-11-21 20:07] VITALS: BP 153/72
[2016-11-21 23:26] VITALS: BP 168/76
[2016-11-22 03:29] VITALS: BP 164/74
[2016-11-22 04:20] LABS: POINT-OF-CARE METER ID UU14188625
[2016-11-22 06:35] LABS: EOSINOPHIL (%) 3.8 % (0-5); EOSINOPHIL COUNT 0.2 K/uL (0-0.3); HEMATOCRIT 28.1 % (38.0-50.0); IMMATURE GRANULOCYTE (%) 0.5 % (0.0-0.7); INSTRUMENT ABS NEUTROPHIL CT 3.3 K/uL; MCH 26.6 PG (29.0-34.0); MCHC 30.6 G/DL (30.0-36.0); MEAN PLAT.VOLUME 9.5 uM^3 (9.0-12.4); MONOCYTE (%) 8.1 % (3-12); MONOCYTE COUNT 0.5 K/uL (0-0.8); NEUTROPHIL (%) 54.2 % (45-76); NEUTROPHIL COUNT 3.3 K/uL (1.8-6.4); PLATELET COUNT 128 K/uL (156-360); RBC DIS.WIDTH-CV 13.6 % (11.8-14.6); RBC DIS.WIDTH-SD 42.9 % (39-53); RED BLOOD COUNT 3.23 M/uL (4.00-5.50)
[2016-11-22 07:11] LABS: ANION GAP 8 MEQ/L (2-14); CHLORIDE 109 MEQ/L (99-109); GFR ESTIMATE (CALCULATED) 50 mL/min/; POTASSIUM 5.8 MEQ/L (3.7-5.4); SAMPLE HEMOLYSIS CHECK 0; SAMPLE ICTERIC CHECK 0; SAMPLE LIPEMIA CHECK 0; SODIUM 142 MEQ/L (136-147); UREA NITROGEN (BUN) 32 mg/dL (9-23)
[2016-11-22 07:12] LABS: GLUCOSE 84 mg/dL (70-99)
[2016-11-22 08:16] VITALS: BP 164/78
[2016-11-22 09:05] LABS: POINT-OF-CARE METER ID UU14188625
[2016-11-22 15:40] VITALS: BP 171/67
[2016-11-22 18:45] LABS: ANION GAP 12 MEQ/L (2-14); CHLORIDE 107 MEQ/L (99-109); GFR ESTIMATE (CALCULATED) 43 mL/min/; POTASSIUM 5.6 MEQ/L (3.7-5.4); SAMPLE HEMOLYSIS CHECK 0; SAMPLE ICTERIC CHECK 0; SAMPLE LIPEMIA CHECK 0; SODIUM 142 MEQ/L (136-147); UREA NITROGEN (BUN) 30 mg/dL (9-23)
[2016-11-22 18:50] LABS: GLUCOSE 132 mg/dL (70-99)
[2016-11-22 19:46] VITALS: BP 144/60
[2016-11-22 21:44] LABS: ADD MIUA? NO; BILIRUBIN NEGATIVE; BLOOD NEGATIVE; COLOR STRAW ((YELLOW)); GLUCOSE (STRIP) NEGATIVE; KETONES NEGATIVE; LEUKOCYTES NEGATIVE; NITRITE NEGATIVE; PROTEIN (STRIP) NEGATIVE; SPECIFIC GRAVITY 1.008 (1.000-1.030); UROBILINOGEN 0.2 MG/DL (0.2-1.0)
[2016-11-22 22:10] LABS: UR CREATININE CONCENTRATION 45.4 MG/DL
[2016-11-23] VITALS: BP 150/67
[2016-11-23 03:36] LABS: POINT-OF-CARE METER ID UU14174225
[2016-11-23 03:51] VITALS: BP 150/58
[2016-11-23 06:57] LABS: EOSINOPHIL (%) 2.9 % (0-5); EOSINOPHIL COUNT 0.2 K/uL (0-0.3); HEMATOCRIT 27.5 % (38.0-50.0); IMMATURE GRANULOCYTE (%) 0.5 % (0.0-0.7); INSTRUMENT ABS NEUTROPHIL CT 3.4 K/uL; MCH 26.9 PG (29.0-34.0); MCHC 30.5 G/DL (30.0-36.0); MCV 88.1 FL (86-99); MEAN PLAT.VOLUME 9.5 uM^3 (9.0-12.4); MONOCYTE (%) 9.6 % (3-12); MONOCYTE COUNT 0.6 K/uL (0-0.8); NEUTROPHIL (%) 54.8 % (45-76); NEUTROPHIL COUNT 3.4 K/uL (1.8-6.4); PLATELET COUNT 127 K/uL (156-360); RBC DIS.WIDTH-CV 13.8 % (11.8-14.6); RED BLOOD COUNT 3.12 M/uL (4.00-5.50); WHITE BLOOD COUNT 6.1 K/uL (4.1-10.2)
[2016-11-23 07:21] LABS: ANION GAP 8 MEQ/L (2-14); CHLORIDE 111 MEQ/L (99-109); GFR ESTIMATE (CALCULATED) 43 mL/min/; GLUCOSE 100 mg/dL (70-99); POTASSIUM 5.8 MEQ/L (3.7-5.4); SAMPLE HEMOLYSIS CHECK 0; SAMPLE ICTERIC CHECK 0; SAMPLE LIPEMIA CHECK 0; SODIUM 143 MEQ/L (136-147); UREA NITROGEN (BUN) 31 mg/dL (9-23)
[2016-11-23 08:11] LABS: POINT-OF-CARE METER ID UU14174225
[2016-11-23 08:38] VITALS: BP 142/67
[2016-11-23 11:25] VITALS: BP 162/73
[2016-11-23 12:12] LABS: POINT-OF-CARE METER ID UU14174225
[2016-11-23 16:19] LABS: ANION GAP 10 MEQ/L (2-14); CHLORIDE 107 MEQ/L (99-109); GFR ESTIMATE (CALCULATED) 50 mL/min/; POTASSIUM 5.7 MEQ/L (3.7-5.4); SAMPLE HEMOLYSIS CHECK 0; SAMPLE ICTERIC CHECK 0; SAMPLE LIPEMIA CHECK 0; SODIUM 140 MEQ/L (136-147); UREA NITROGEN (BUN) 28 mg/dL (9-23)
[2016-11-23 16:22] LABS: GLUCOSE 176 mg/dL (70-99)
[2016-11-23 17:24] LABS: POINT-OF-CARE METER ID UU14174225
[2016-11-23 17:52] VITALS: BP 138/72
[2016-11-23 19:44] VITALS: BP 150/67
[2016-11-23 20:57] LABS: POINT-OF-CARE METER ID UU14174225
[2016-11-24] VITALS (8 sets, daily range): BP systolic 102–160; BP diastolic 61–79
[2016-11-24 06:36] LABS: EOSINOPHIL (%) 2.5 % (0-5); EOSINOPHIL COUNT 0.2 K/uL (0-0.3); IMMATURE GRANULOCYTE (%) 0.5 % (0.0-0.7); INSTRUMENT ABS NEUTROPHIL CT 4.7 K/uL; LYMPHOCYTE COUNT 1.8 K/uL (1.0-2.8); MCHC 31.9 G/DL (30.0-36.0); MCV 87.9 FL (86-99); MEAN PLAT.VOLUME 9.4 uM^3 (9.0-12.4); MONOCYTE (%) 10.3 % (3-12); MONOCYTE COUNT 0.8 K/uL (0-0.8); NEUTROPHIL (%) 62.2 % (45-76); NEUTROPHIL COUNT 4.7 K/uL (1.8-6.4); PLATELET COUNT 111 K/uL (156-360); RBC DIS.WIDTH-CV 13.7 % (11.8-14.6); RBC DIS.WIDTH-SD 43.3 % (39-53); RED BLOOD COUNT 3.07 M/uL (4.00-5.50); WHITE BLOOD COUNT 7.6 K/uL (4.1-10.2)
[2016-11-24 07:03] LABS: ANION GAP 8 MEQ/L (2-14); CHLORIDE 110 MEQ/L (99-109); GFR ESTIMATE (CALCULATED) 50 mL/min/; POTASSIUM 5.5 MEQ/L (3.7-5.4); SAMPLE HEMOLYSIS CHECK 0; SAMPLE ICTERIC CHECK 0; SAMPLE LIPEMIA CHECK 0; SODIUM 142 MEQ/L (136-147); UREA NITROGEN (BUN) 29 mg/dL (9-23)
[2016-11-24 07:04] LABS: GLUCOSE 94 mg/dL (70-99)
[2016-11-24 11:23] LABS: POINT-OF-CARE METER ID UU14188625
[2016-11-24 22:46] LABS: POINT-OF-CARE METER ID UU13113717
[2016-11-25 04:04] VITALS: BP 147/67
[2016-11-25 07:08] LABS: EOSINOPHIL (%) 2.1 % (0-5); EOSINOPHIL COUNT 0.2 K/uL (0-0.3); HEMATOCRIT 29.7 % (38.0-50.0); IMMATURE GRANULOCYTE (%) 0.4 % (0.0-0.7); INSTRUMENT ABS NEUTROPHIL CT 5.7 K/uL; LYMPHOCYTE COUNT 1.7 K/uL (1.0-2.8); MCH 28.4 PG (29.0-34.0); MCV 88.7 FL (86-99); MEAN PLAT.VOLUME 9.8 uM^3 (9.0-12.4); MONOCYTE (%) 7.5 % (3-12); MONOCYTE COUNT 0.6 K/uL (0-0.8); NEUTROPHIL (%) 69.3 % (45-76); NEUTROPHIL COUNT 5.7 K/uL (1.8-6.4); PLATELET COUNT 118 K/uL (156-360); RBC DIS.WIDTH-CV 13.8 % (11.8-14.6); RBC DIS.WIDTH-SD 44.2 % (39-53); RED BLOOD COUNT 3.35 M/uL (4.00-5.50); WHITE BLOOD COUNT 8.3 K/uL (4.1-10.2)
[2016-11-25 07:28] LABS: ANION GAP 11 MEQ/L (2-14); CHLORIDE 108 MEQ/L (99-109); GFR ESTIMATE (CALCULATED) 43 mL/min/; GLUCOSE 129 mg/dL (70-99); POTASSIUM 5.4 MEQ/L (3.7-5.4); SAMPLE HEMOLYSIS CHECK 0; SAMPLE ICTERIC CHECK 0; SAMPLE LIPEMIA CHECK 0; SODIUM 142 MEQ/L (136-147); UREA NITROGEN (BUN) 34 mg/dL (9-23)
[2016-11-25 08:40] VITALS: BP 142/72
[2016-11-25 11:55] LABS: POINT-OF-CARE METER ID UU14174225
[2016-11-25 12:09] VITALS: BP 138/70
[2016-11-25 16:21] VITALS: BP 158/68
== END 2016-11-25 18:29 | disposition home or self-care (01) | DRG 92 ==
LOC: EME → EDBD 15:48 → EDOF 20:36 → 5SOUTH 20:36 → ENRESERV 20:47 → 5SOUTH 21:46
PROVIDERS: Hospitalist; Internal Medicine; Internal Medicine Nephrology; Physician Assistant Medical
DX: R47.81 Slurred speech (principal); E87.5 Hyperkalemia; E87.4 Mixed disorder of acid-base balance; N17.9 Acute kidney failure, unspecified; J44.1 Chronic obstructive pulmonary disease with (acute) exacerbation; E11.40 Type 2 diabetes mellitus with diabetic neuropathy, unspecified; E11.65 Type 2 diabetes mellitus with hyperglycemia; I50.9 Heart failure, unspecified; I13.0 Hypertensive heart and chronic kidney disease with heart failure and stage 1 through stage 4 chronic kidney disease, or unspecified chronic kidney disease; I50.32 Chronic diastolic (congestive) heart failure; T46.4X5A Adverse effect of angiotensin-converting-enzyme inhibitors, initial encounter; N18.3 Chronic kidney disease, stage 3 (moderate); G40.909 Epilepsy, unspecified, not intractable, without status epilepticus; H53.8 Other visual disturbances; R29.810 Facial weakness; D63.8 Anemia in other chronic diseases classified elsewhere; R42 Dizziness and giddiness; K21.9 Gastro-esophageal reflux disease without esophagitis; E78.00 Pure hypercholesterolemia, unspecified; G47.33 Obstructive sleep apnea (adult) (pediatric); E78.5 Hyperlipidemia, unspecified; F31.9 Bipolar disorder, unspecified; N40.0 Benign prostatic hyperplasia without lower urinary tract symptoms; I25.10 Atherosclerotic heart disease of native coronary artery without angina pectoris; I65.23 Occlusion and stenosis of bilateral carotid arteries; J44.9 Chronic obstructive pulmonary disease, unspecified; F32.9 Major depressive disorder, single episode, unspecified; M19.90 Unspecified osteoarthritis, unspecified site; E11.22 Type 2 diabetes mellitus with diabetic chronic kidney disease; E03.9 Hypothyroidism, unspecified; R26.9 Unspecified abnormalities of gait and mobility; Z90.49 Acquired absence of other specified parts of digestive tract; Z68.41 Body mass index [BMI] 40.0-44.9, adult; Z79.82 Long term (current) use of aspirin; Z91.19 Patient's noncompliance with other medical treatment and regimen; Z79.4 Long term (current) use of insulin; I25.2 Old myocardial infarction; Z87.891 Personal history of nicotine dependence; Z88.6 Allergy status to analgesic agent; Z88.0 Allergy status to penicillin
CPT/HCPCS: 36600; 70450; 70551; 71010; 76770; 80048; 80048 91; 80053; 80061; 80164; 81003; 82272; 82436; 82570; 82607; 82728; 82803; 82948; 83036; 83540; 83605; 83690; 83880; 83935; 84132 91; 84133; 84300; 84466; 84484; 85025; 85025 91; 85027; 85610; 87641; 93005; 93880; 94640; 94640 76; 94799; 97530 GO; 99202; 99281; 99285; G0480; J1644; J1815; J1940; J7040

== ENCOUNTER 2017-01-16 07:52 | Inpatient (IN) | payer OTHER ==
[~2017-01-16] VITALS: Ht 180.3 cm; Wt 144.7 kg
[~2017-01-16 07:52] MED LIST changes: +VITAMIN B-12500 MC5 SL
[2017-01-16 08:32] LABS: EOSINOPHIL (%) 2.7 % (0-5); EOSINOPHIL COUNT 0.3 K/uL (0-0.3); HEMATOCRIT 27.7 % (38.0-50.0); IMMATURE GRANULOCYTE (%) 0.3 % (0.0-0.7); INSTRUMENT ABS NEUTROPHIL CT 7.1 K/uL; LYMPHOCYTE COUNT 1.6 K/uL (1.0-2.8); MCHC 30.7 G/DL (30.0-36.0); MCV 87.9 FL (86-99); MEAN PLAT.VOLUME 9.6 uM^3 (9.0-12.4); MONOCYTE (%) 7.7 % (3-12); MONOCYTE COUNT 0.8 K/uL (0-0.8); NEUTROPHIL (%) 72.5 % (45-76); NEUTROPHIL COUNT 7.1 K/uL (1.8-6.4); PLATELET COUNT 113 K/uL (156-360); RBC DIS.WIDTH-CV 14.9 % (11.8-14.6); RBC DIS.WIDTH-SD 48.1 % (39-53); RED BLOOD COUNT 3.15 M/uL (4.00-5.50); WHITE BLOOD COUNT 9.8 K/uL (4.1-10.2)
[2017-01-16 08:43] LABS: CHLORIDE 114 mEq/L (99-109); SODIUM 143 mEq/L (136-147)
[2017-01-16 08:45] LABS: GLUCOSE 90 mg/dL (70-99)
[2017-01-16 08:46] LABS: ANION GAP 6 MEQ/L (2-14)
[2017-01-16 08:47] LABS: TOTAL BILIRUBIN 0.3 mg/dL (0.0-1.0)
[2017-01-16 08:49] LABS: ALKALINE PHOSPHATASE 65 IU/L (3-129); GFR ESTIMATE (CALCULATED) 46 mL/min/
[2017-01-16 08:50] LABS: UREA NITROGEN (BUN) 33 mg/dL (9-23)
[2017-01-16 09:00] LABS: BASE EXCESS -0.4 mEq/L (-3 to +3); METHEMOGLOBIN 1.1 % (0-1.5); PCO2 43 mm Hg (35-45); PO2 71 mm Hg (80-100)
[2017-01-16 09:01] LABS: BICARBONATE 24.9 mEq/L (22-26); COMMENTS - BLOOD GASES C+; DEVICE NC; O2 FLOW 2 L/MIN; SITE RR; TOTAL RESP RATE 24 resp/min; pH 7.37 (7.35-7.45)
[2017-01-16 12:57] VITALS: BP 176/74
[2017-01-16 13:05] LABS: POINT-OF-CARE METER ID UU13113700
[2017-01-16 15:31] VITALS: BP 131/70
[2017-01-16 16:03] VITALS: BP 147/67
[2017-01-16 16:18] LABS: ADD MIUA? NO; BILIRUBIN NEGATIVE; BLOOD NEGATIVE; COLOR YELLOW ((YELLOW)); GLUCOSE (STRIP) NEGATIVE; KETONES NEGATIVE; LEUKOCYTES NEGATIVE; NITRITE NEGATIVE; PROTEIN (STRIP) NEGATIVE; SPECIFIC GRAVITY 1.011 (1.000-1.030); UROBILINOGEN 0.2 MG/DL (0.2-1.0)
[2017-01-16 16:39] LABS: AMPHETAMINES QUANT VALUE 0 NG/ML; BARBITUATES QUANT VALUE 0 NG/ML; BENZODIAZEPINES QUANT VALUE 0 NG/ML; BENZODIAZEPINES, URINE SCREEN Negative (200 ng/mL); MARIJUANA QUANT VALUE 0 NG/ML; OPIATES QUANTITATIVE VALUE 0 NG/ML; PHENCYCLIDINE QUANT VALUE 0 NG/ML
[2017-01-16 17:07] LABS: METH RESISTANT S AUREUS PCR POSITIVE (NEGATIVE)
[2017-01-16 17:16] LABS: PROBE CHECK PASS
[2017-01-17] VITALS (7 sets, daily range): BP systolic 125–153; BP diastolic 57–94
[2017-01-17 06:27] LABS: HEMATOCRIT 29.6 % (38.0-50.0); MCH 26.8 PG (29.0-34.0); MCHC 30.1 G/DL (30.0-36.0); MCV 89.2 FL (86-99); MEAN PLAT.VOLUME 9.9 uM^3 (9.0-12.4); PLATELET COUNT 110 K/uL (156-360); RBC DIS.WIDTH-CV 14.8 % (11.8-14.6); RBC DIS.WIDTH-SD 48.2 % (39-53); RED BLOOD COUNT 3.32 M/uL (4.00-5.50); WHITE BLOOD COUNT 9.8 K/uL (4.1-10.2)
[2017-01-17 06:47] LABS: ANION GAP 11 MEQ/L (2-14); CHLORIDE 110 MEQ/L (99-109); GFR ESTIMATE (CALCULATED) 43 mL/min/; GLUCOSE 94 mg/dL (70-99); POTASSIUM 4.8 MEQ/L (3.7-5.4); SAMPLE HEMOLYSIS CHECK 0; SAMPLE ICTERIC CHECK 0; SAMPLE LIPEMIA CHECK 0; SODIUM 143 MEQ/L (136-147); UREA NITROGEN (BUN) 32 mg/dL (9-23)
[2017-01-17 08:27] LABS: BASE EXCESS -0.2 mEq/L (-3 to +3); BICARBONATE 23.8 mEq/L (22-26); CARBOXY HGB 1.6 % (0-5); METHEMOGLOBIN 1.5 % (0-1.5); pH 7.44 (7.35-7.45)
[2017-01-17 08:29] LABS: COMMENTS - BLOOD GASES C+A+; DEVICE HFNC; O2 FLOW 15 L/MIN; PCO2 35 mm Hg (35-45); PO2 87 mm Hg (80-100); SITE RR; TOTAL RESP RATE 32 resp/min
[2017-01-17] MEDS ORDERED: HYDROCHLOROTHIA50 MG PO (17:08)
[2017-01-17] MEDS ORDERED: INCRUSE ELLI62.5 MCG IH (17:26)
[2017-01-17 17:55] LABS: POINT-OF-CARE METER ID UU13113831
[2017-01-18] VITALS (7 sets, daily range): BP systolic 140–167; BP diastolic 62–72
[2017-01-18 00:39] LABS: POINT-OF-CARE METER ID UU13113831
[2017-01-18 05:31] LABS: EOSINOPHIL (%) 2.7 % (0-5); EOSINOPHIL COUNT 0.2 K/uL (0-0.3); HEMATOCRIT 28.1 % (38.0-50.0); IMMATURE GRANULOCYTE (%) 0.5 % (0.0-0.7); LYMPHOCYTE COUNT 1.5 K/uL (1.0-2.8); MCH 26.4 PG (29.0-34.0); MCHC 29.9 G/DL (30.0-36.0); MCV 88.4 FL (86-99); MONOCYTE COUNT 0.9 K/uL (0-0.8); NEUTROPHIL (%) 69.6 % (45-76); RBC DIS.WIDTH-CV 14.6 % (11.8-14.6); RBC DIS.WIDTH-SD 47.1 % (39-53); RED BLOOD COUNT 3.18 M/uL (4.00-5.50); WHITE BLOOD COUNT 8.6 K/uL (4.1-10.2)
[2017-01-18 05:40] LABS: ANION GAP 10 MEQ/L (2-14); CHLORIDE 113 MEQ/L (99-109); POTASSIUM 5.1 MEQ/L (3.7-5.4); SAMPLE HEMOLYSIS CHECK 0; SAMPLE ICTERIC CHECK 0; SAMPLE LIPEMIA CHECK 0; SODIUM 141 MEQ/L (136-147); TOTAL BILIRUBIN 0.5 MG/DL (0.0-1.0)
[2017-01-18 05:46] LABS: ALKALINE PHOSPHATASE 64 IU/L (3-129); GFR ESTIMATE (CALCULATED) 38 mL/min/; GLUCOSE 114 mg/dL (70-99); UREA NITROGEN (BUN) 34 mg/dL (9-23)
[2017-01-18 06:00] LABS: MEAN PLAT.VOLUME 10.8 uM^3 (9.0-12.4)
[2017-01-18 14:40] LABS: PLAT.SUFFICIENCY DECREASED
[2017-01-19 04:08] VITALS: BP 140/69
[2017-01-19 08:59] VITALS: BP 166/74
[2017-01-19 11:11] VITALS: BP 129/63
[2017-01-19 12:39] LABS: ANION GAP 10 MEQ/L (2-14); CHLORIDE 112 MEQ/L (99-109); GFR ESTIMATE (CALCULATED) 43 mL/min/; GLUCOSE 141 mg/dL (70-99); POTASSIUM 4.8 MEQ/L (3.7-5.4); SAMPLE HEMOLYSIS CHECK 0; SAMPLE ICTERIC CHECK 0; SAMPLE LIPEMIA CHECK 0; SODIUM 143 MEQ/L (136-147); UREA NITROGEN (BUN) 31 mg/dL (9-23)
[2017-01-19 13:14] LABS: EOSINOPHIL (%) 4.2 % (0-5); EOSINOPHIL COUNT 0.3 K/uL (0-0.3); HEMATOCRIT 25.5 % (38.0-50.0); IMMATURE GRANULOCYTE (%) 0.4 % (0.0-0.7); INSTRUMENT ABS NEUTROPHIL CT 5.1 K/uL; LYMPHOCYTE COUNT 1.3 K/uL (1.0-2.8); MCH 27.9 PG (29.0-34.0); MCHC 31.4 G/DL (30.0-36.0); MCV 88.9 FL (86-99); MONOCYTE (%) 8.5 % (3-12); MONOCYTE COUNT 0.6 K/uL (0-0.8); NEUTROPHIL (%) 69.2 % (45-76); NEUTROPHIL COUNT 5.1 K/uL (1.8-6.4); PLATELET COUNT 116 K/uL (156-360); RBC DIS.WIDTH-CV 14.6 % (11.8-14.6); RBC DIS.WIDTH-SD 47.1 % (39-53); RED BLOOD COUNT 2.87 M/uL (4.00-5.50); WHITE BLOOD COUNT 7.4 K/uL (4.1-10.2)
[2017-01-19 15:10] VITALS: BP 124/68
[2017-01-19 19:40] VITALS: BP 167/74
[2017-01-20] VITALS (12 sets, daily range): BP systolic 148–160; BP diastolic 54–72
[2017-01-20 05:35] LABS: EOSINOPHIL (%) 5.4 % (0-5); EOSINOPHIL COUNT 0.4 K/uL (0-0.3); HEMATOCRIT 23.6 % (38.0-50.0); IMMATURE GRANULOCYTE (%) 0.3 % (0.0-0.7); INSTRUMENT ABS NEUTROPHIL CT 4.2 K/uL; LYMPHOCYTE COUNT 1.4 K/uL (1.0-2.8); MCHC 30.9 G/DL (30.0-36.0); MCV 87.4 FL (86-99); MEAN PLAT.VOLUME 10.1 uM^3 (9.0-12.4); MONOCYTE (%) 9.9 % (3-12); MONOCYTE COUNT 0.7 K/uL (0-0.8); NEUTROPHIL (%) 62.4 % (45-76); NEUTROPHIL COUNT 4.2 K/uL (1.8-6.4); PLATELET COUNT 130 K/uL (156-360); RBC DIS.WIDTH-CV 14.6 % (11.8-14.6); RBC DIS.WIDTH-SD 46.5 % (39-53); WHITE BLOOD COUNT 6.7 K/uL (4.1-10.2)
[2017-01-20 06:13] LABS: POINT-OF-CARE METER ID UU13113831
[2017-01-20 07:03] LABS: ANION GAP 10 MEQ/L (2-14); CHLORIDE 110 MEQ/L (99-109); GFR ESTIMATE (CALCULATED) 43 mL/min/; POTASSIUM 4.9 MEQ/L (3.7-5.4); SAMPLE HEMOLYSIS CHECK 0; SAMPLE ICTERIC CHECK 0; SAMPLE LIPEMIA CHECK 0; SODIUM 143 MEQ/L (136-147); UREA NITROGEN (BUN) 31 mg/dL (9-23)
[2017-01-20 07:08] LABS: GLUCOSE 78 mg/dL (70-99)
[2017-01-20 23:02] LABS: POINT-OF-CARE METER ID UU13113700
[2017-01-21 04:30] VITALS: BP 157/68
[2017-01-21 05:43] LABS: EOSINOPHIL (%) 6.3 % (0-5); EOSINOPHIL COUNT 0.4 K/uL (0-0.3); HEMATOCRIT 26.5 % (38.0-50.0); IMMATURE GRANULOCYTE (%) 0.4 % (0.0-0.7); INSTRUMENT ABS NEUTROPHIL CT 3.9 K/uL; LYMPHOCYTE COUNT 1.6 K/uL (1.0-2.8); MCH 27.4 PG (29.0-34.0); MCHC 31.3 G/DL (30.0-36.0); MCV 87.5 FL (86-99); MEAN PLAT.VOLUME 9.7 uM^3 (9.0-12.4); MONOCYTE (%) 11.2 % (3-12); MONOCYTE COUNT 0.8 K/uL (0-0.8); NEUTROPHIL (%) 57.9 % (45-76); NEUTROPHIL COUNT 3.9 K/uL (1.8-6.4); PLATELET COUNT 136 K/uL (156-360); RBC DIS.WIDTH-CV 14.6 % (11.8-14.6); RBC DIS.WIDTH-SD 46.7 % (39-53); RED BLOOD COUNT 3.03 M/uL (4.00-5.50); WHITE BLOOD COUNT 6.7 K/uL (4.1-10.2)
[2017-01-21] MEDS ORDERED: LEVAQUIN750 MG PO (08:54)
[2017-01-21 11:18] VITALS: BP 177/77
[2017-01-21 11:29] LABS: Estimated Average Glucose 183 mg/dL (70-123)
[2017-01-21 12:17] LABS: POINT-OF-CARE METER ID UU13113700
[2017-01-21 15:34] VITALS: BP 158/72
[2017-01-21 17:26] LABS: POINT-OF-CARE METER ID UU13113700
[2017-01-21 20:04] VITALS: BP 165/74
[2017-01-22 01:04] VITALS: BP 139/64
[2017-01-22 03:47] VITALS: BP 133/65
[2017-01-22 05:32] LABS: HEMATOCRIT 29.4 % (38.0-50.0); MCHC 31.3 G/DL (30.0-36.0); MCV 86.2 FL (86-99); MEAN PLAT.VOLUME 9.3 uM^3 (9.0-12.4); PLATELET COUNT 140 K/uL (156-360); RBC DIS.WIDTH-CV 14.4 % (11.8-14.6); RED BLOOD COUNT 3.41 M/uL (4.00-5.50); WHITE BLOOD COUNT 6.2 K/uL (4.1-10.2)
[2017-01-22 06:23] LABS: ANION GAP 11 MEQ/L (2-14); CHLORIDE 110 MEQ/L (99-109); GFR ESTIMATE (CALCULATED) 43 mL/min/; SAMPLE HEMOLYSIS CHECK 0; SAMPLE ICTERIC CHECK 0; SAMPLE LIPEMIA CHECK 0; SODIUM 139 MEQ/L (136-147); UREA NITROGEN (BUN) 35 mg/dL (9-23)
[2017-01-22 06:24] LABS: GLUCOSE 184 mg/dL (70-99)
[2017-01-22 08:18] LABS: POINT-OF-CARE METER ID UU13113700
[2017-01-22 09:38] VITALS: BP 157/93
[2017-01-22 12:06] LABS: POINT-OF-CARE METER ID UU13113700
[2017-01-22 12:10] VITALS: BP 156/70
[2017-01-22] MEDS ORDERED: PREDNISONE10 MG PO (14:17)
[2017-01-22 16:16] VITALS: BP 152/68
[2017-01-22 17:25] LABS: POINT-OF-CARE METER ID UU13113700
== END 2017-01-22 18:36 | disposition home health service (06) | DRG 193 ==
LOC: EME 07:52 → EDOF 11:18 → ENRESERV 11:21 → 5WEST 12:37
PROVIDERS: Emergency Medicine; Hospitalist; Internal Medicine Nephrology; Physician Assistant Medical; Student in an Organized Health Care Education/Training Program
PROC: 30233N1 Transfusion of Nonautologous Red Blood Cells into Peripheral Vein, Percutaneous Approach (ICD-10-PCS; principal; 2017-01-20)
DX: J13 Pneumonia due to Streptococcus pneumoniae (principal); G93.40 Encephalopathy, unspecified; J44.1 Chronic obstructive pulmonary disease with (acute) exacerbation; J44.0 Chronic obstructive pulmonary disease with (acute) lower respiratory infection; Z68.41 Body mass index [BMI] 40.0-44.9, adult; J96.11 Chronic respiratory failure with hypoxia; I50.32 Chronic diastolic (congestive) heart failure; I13.0 Hypertensive heart and chronic kidney disease with heart failure and stage 1 through stage 4 chronic kidney disease, or unspecified chronic kidney disease; F33.9 Major depressive disorder, recurrent, unspecified; E87.2 Acidosis; Z99.81 Dependence on supplemental oxygen; E66.01 Morbid (severe) obesity due to excess calories; G47.33 Obstructive sleep apnea (adult) (pediatric); D63.1 Anemia in chronic kidney disease; E11.22 Type 2 diabetes mellitus with diabetic chronic kidney disease; E03.9 Hypothyroidism, unspecified; E78.5 Hyperlipidemia, unspecified; F41.9 Anxiety disorder, unspecified; G89.29 Other chronic pain; N40.0 Benign prostatic hyperplasia without lower urinary tract symptoms; K21.9 Gastro-esophageal reflux disease without esophagitis; I73.9 Peripheral vascular disease, unspecified; E87.5 Hyperkalemia; N18.3 Chronic kidney disease, stage 3 (moderate); Z87.891 Personal history of nicotine dependence; Z91.19 Patient's noncompliance with other medical treatment and regimen; Z91.81 History of falling; Z88.0 Allergy status to penicillin; Z87.01 Personal history of pneumonia (recurrent); Z86.73 Personal history of transient ischemic attack (TIA), and cerebral infarction without residual deficits; Z79.82 Long term (current) use of aspirin; Z79.4 Long term (current) use of insulin; Z88.5 Allergy status to narcotic agent; Z90.49 Acquired absence of other specified parts of digestive tract; Z82.49 Family history of ischemic heart disease and other diseases of the circulatory system
CPT/HCPCS: 36600; 70450; 70551; 71010; 71020; 78582; 80048; 80053; 80164; 80306 90; 81003; 82140; 82803; 82948; 83036; 83605; 84132 91; 85025; 85027; 85379; 86850; 86900; 86901; 86920; 87040; 87116; 87641; 93005; 93970; 94640; 94640 76; 94760; 94799; 99202; 99281; 99285; A9540; A9567; G0378; G8987 GO CH; G8988 GO CH; G8989 GO CH; J0881; J1650; J1815; J1940; J1956; J2310; J2930; J7030; J7512; P9016

== ENCOUNTER 2017-02-06 10:35 | Inpatient (IN) | payer OTHER ==
[~2017-02-06] VITALS: Ht 180.3 cm; Wt 147.0 kg
[~2017-02-06 10:35] MED LIST changes: +HYDROCHLOROTHIA50 MG PO
[2017-02-06 11:30] LABS: HEMATOCRIT 29.5 % (38.0-50.0); MCH 26.4 PG (29.0-34.0); MCHC 30.5 G/DL (30.0-36.0); MCV 86.5 FL (86-99); RBC DIS.WIDTH-CV 15.2 % (11.8-14.6); RED BLOOD COUNT 3.41 M/uL (4.00-5.50)
[2017-02-06 11:35] LABS: CHLORIDE 110 mEq/L (99-109); POTASSIUM 5.5 mEq/L (3.7-5.4); SODIUM 143 mEq/L (136-147)
[2017-02-06 11:37] LABS: GLUCOSE 114 mg/dL (70-99)
[2017-02-06 11:38] LABS: ANION GAP 9 MEQ/L (2-14)
[2017-02-06 11:39] LABS: TOTAL BILIRUBIN 0.4 mg/dL (0.0-1.0)
[2017-02-06 11:41] LABS: ALKALINE PHOSPHATASE 63 IU/L (3-129); GFR ESTIMATE (CALCULATED) 50 mL/min/
[2017-02-06 11:42] LABS: UREA NITROGEN (BUN) 43 mg/dL (9-23)
[2017-02-06 12:20] LABS: TROP-I INTERPRETATION NEGATIVE; TROPONIN-I < 0.01 ng/mL (0.0-0.30)
[2017-02-06 12:32] LABS: PLATELET COUNT 115 K/uL (156-360)
[2017-02-06 12:43] LABS: MEAN PLAT.VOLUME 11.9 uM^3 (9.0-12.4)
[2017-02-06] MEDS ORDERED: PERCOCET 5/31 TABLET PO (14:02)
[2017-02-06] MEDS ORDERED: DEPAKOTE250 MG PO ×2 (14:03)
[2017-02-06] MEDS ORDERED: FLOMAX0.4 MG PO (14:04)
[2017-02-06] MEDS ORDERED: COREG25 M1 PO (14:08)
[2017-02-06] MEDS ORDERED: AMBIEN5 MG PO (14:08)
[2017-02-06 17:32] LABS: POINT-OF-CARE METER ID UU13113717
[2017-02-06 19:23] VITALS: BP 146/64
[2017-02-06 21:07] LABS: POINT-OF-CARE METER ID UU14174225
[2017-02-06 23:46] VITALS: BP 136/62
[2017-02-07] VITALS (8 sets, daily range): BP systolic 112–151; BP diastolic 50–68
[2017-02-07 07:40] LABS: POINT-OF-CARE METER ID UU13113717
[2017-02-07 09:17] LABS: BASE EXCESS 4.7 mEq/L (-3 to +3); CARBOXY HGB 2.1 % (0-5); METHEMOGLOBIN 1.4 % (0-1.5); pH 7.42 (7.35-7.45)
[2017-02-07 09:19] LABS: BICARBONATE 29.8 mEq/L (22-26); COMMENTS - BLOOD GASES A+C+; DEVICE NC; O2 FLOW 2 L/MIN; PCO2 46 mm Hg (35-45); PO2 58 mm Hg (80-100); SITE LR; TOTAL RESP RATE 26 resp/min
[2017-02-07 11:43] LABS: POINT-OF-CARE METER ID UU14174225
[2017-02-07 11:59] LABS: EOSINOPHIL (%) 3.1 % (0-5); EOSINOPHIL COUNT 0.2 K/uL (0-0.3); HEMATOCRIT 28.8 % (38.0-50.0); IMMATURE GRANULOCYTE (%) 0.3 % (0.0-0.7); INSTRUMENT ABS NEUTROPHIL CT 4.7 K/uL; LYMPHOCYTE COUNT 1.6 K/uL (1.0-2.8); MCH 26.6 PG (29.0-34.0); MCHC 30.2 G/DL (30.0-36.0); MCV 88.1 FL (86-99); MONOCYTE (%) 9.3 % (3-12); MONOCYTE COUNT 0.7 K/uL (0-0.8); NEUTROPHIL (%) 65.1 % (45-76); NEUTROPHIL COUNT 4.7 K/uL (1.8-6.4); PLATELET COUNT 111 K/uL (156-360); RBC DIS.WIDTH-CV 15.6 % (11.8-14.6); RBC DIS.WIDTH-SD 49.8 % (39-53); RED BLOOD COUNT 3.27 M/uL (4.00-5.50); WHITE BLOOD COUNT 7.2 K/uL (4.1-10.2)
[2017-02-07 12:23] LABS: ANION GAP 10 MEQ/L (2-14); CHLORIDE 106 MEQ/L (99-109); GFR ESTIMATE (CALCULATED) 43 mL/min/; GLUCOSE 162 mg/dL (70-99); POTASSIUM 5.1 MEQ/L (3.7-5.4); SAMPLE HEMOLYSIS CHECK 0; SAMPLE ICTERIC CHECK 0; SAMPLE LIPEMIA CHECK 0; SODIUM 143 MEQ/L (136-147); UREA NITROGEN (BUN) 49 mg/dL (9-23)
[2017-02-07 12:32] LABS: POINT-OF-CARE METER ID UU14174225; POINT-OF-CARE USER ID STWAMT
[2017-02-07 13:10] LABS: TROP-I INTERPRETATION NEGATIVE; TROPONIN-I 0.02 ng/mL (0.0-0.30)
[2017-02-07 13:15] LABS: BASE EXCESS 4.9 mEq/L (-3 to +3); BICARBONATE 30.4 mEq/L (22-26); CARBOXY HGB 2.4 % (0-5); METHEMOGLOBIN 1.4 % (0-1.5); PCO2 49 mm Hg (35-45)
[2017-02-07 13:16] LABS: DEVICE NC; O2 FLOW 2 L/MIN; PO2 72 mm Hg (80-100); SITE LR; TOTAL RESP RATE 12 resp/min
[2017-02-07 17:11] LABS: POINT-OF-CARE METER ID UU13113717
[2017-02-07 21:18] LABS: POINT-OF-CARE METER ID UU14188625
[2017-02-08 03:14] VITALS: BP 139/68
[2017-02-08 07:53] VITALS: BP 136/66
[2017-02-08 09:31] LABS: POINT-OF-CARE METER ID UU13113717
[2017-02-08 09:43] LABS: POINT-OF-CARE METER ID UU13113717
[2017-02-08 12:03] VITALS: BP 138/63
[2017-02-08 12:56] LABS: POINT-OF-CARE METER ID UU14188625
[2017-02-08 16:42] VITALS: BP 136/65
[2017-02-08 17:47] LABS: POINT-OF-CARE METER ID UU14174225
[2017-02-08 19:44] VITALS: BP 134/60
[2017-02-08 21:23] LABS: POINT-OF-CARE METER ID UU14174225
[2017-02-08 23:31] VITALS: BP 137/62
[2017-02-09 03:50] VITALS: BP 122/56
[2017-02-09 06:34] LABS: MCH 26.1 PG (29.0-34.0); MCHC 30.7 G/DL (30.0-36.0); MCV 84.9 FL (86-99); MEAN PLAT.VOLUME 10.6 uM^3 (9.0-12.4); PLATELET COUNT 125 K/uL (156-360); RBC DIS.WIDTH-CV 14.4 % (11.8-14.6); RBC DIS.WIDTH-SD 45.1 % (39-53); RED BLOOD COUNT 3.18 M/uL (4.00-5.50); WHITE BLOOD COUNT 4.9 K/uL (4.1-10.2)
[2017-02-09 07:03] LABS: ANION GAP 9 MEQ/L (2-14); CHLORIDE 103 MEQ/L (99-109); GFR ESTIMATE (CALCULATED) 38 mL/min/; POTASSIUM 5.5 MEQ/L (3.7-5.4); SAMPLE HEMOLYSIS CHECK 0; SAMPLE ICTERIC CHECK 0; SAMPLE LIPEMIA CHECK 0; SODIUM 138 MEQ/L (136-147); UREA NITROGEN (BUN) 50 mg/dL (9-23)
[2017-02-09 07:11] LABS: GLUCOSE 268 mg/dL (70-99)
[2017-02-09 07:59] VITALS: BP 146/67
[2017-02-09 08:35] LABS: POINT-OF-CARE METER ID UU14188625
[2017-02-09 11:45] VITALS: BP 146/67
[2017-02-09 12:32] LABS: POINT-OF-CARE METER ID UU13113717
[2017-02-09 14:57] VITALS: BP 146/64
[2017-02-09 17:05] LABS: POINT-OF-CARE METER ID UU14188625
[2017-02-09 19:51] VITALS: BP 141/66
[2017-02-09 21:00] LABS: POINT-OF-CARE METER ID UU14188625
[2017-02-10 00:40] VITALS: BP 140/61
[2017-02-10 04:03] VITALS: BP 140/63
[2017-02-10 06:30] LABS: MCH 25.8 PG (29.0-34.0); MCHC 30.8 G/DL (30.0-36.0); MCV 83.9 FL (86-99); PLATELET COUNT 100 K/uL (156-360); RBC DIS.WIDTH-CV 14.6 % (11.8-14.6); WHITE BLOOD COUNT 6.1 K/uL (4.1-10.2)
[2017-02-10 06:45] LABS: ANION GAP 10 MEQ/L (2-14); CHLORIDE 102 MEQ/L (99-109); GFR ESTIMATE (CALCULATED) 38 mL/min/; GLUCOSE 251 mg/dL (70-99); POTASSIUM 5.2 MEQ/L (3.7-5.4); SAMPLE HEMOLYSIS CHECK 0; SAMPLE ICTERIC CHECK 0; SAMPLE LIPEMIA CHECK 0; SODIUM 139 MEQ/L (136-147); UREA NITROGEN (BUN) 57 mg/dL (9-23)
[2017-02-10 08:27] VITALS: BP 148/62
[2017-02-10 11:48] VITALS: BP 139/81
[2017-02-10 12:30] LABS: POINT-OF-CARE METER ID UU14188625
[2017-02-10 15:42] VITALS: BP 150/68
[2017-02-10 16:16] LABS: POINT-OF-CARE METER ID UU13113717
[2017-02-10 16:38] LABS: POINT-OF-CARE METER ID UU14188625
[2017-02-10 19:39] VITALS: BP 137/60
[2017-02-10 20:58] LABS: POINT-OF-CARE METER ID UU13113717
[2017-02-11 00:06] VITALS: BP 140/66
[2017-02-11 04:26] VITALS: BP 137/63
[2017-02-11 07:42] VITALS: BP 172/74
[2017-02-11 08:06] LABS: POINT-OF-CARE METER ID UU13113717
[2017-02-11 10:40] LABS: ANION GAP 9 MEQ/L (2-14); CHLORIDE 99 MEQ/L (99-109); GFR ESTIMATE (CALCULATED) 40 mL/min/; GLUCOSE 199 mg/dL (70-99); POTASSIUM 4.7 MEQ/L (3.7-5.4); SAMPLE HEMOLYSIS CHECK 0; SAMPLE ICTERIC CHECK 0; SAMPLE LIPEMIA CHECK 0; SODIUM 136 MEQ/L (136-147); UREA NITROGEN (BUN) 59 mg/dL (9-23)
[2017-02-11] MEDS ORDERED: CLONIDINE HCL0.1 MG PO (10:44)
[2017-02-11] MEDS ORDERED: LASIX40 MG PO ×2 (10:44→11:10)
[2017-02-11] MEDS ORDERED: AMLODIPINE BESYL5 MG PO (10:44)
[2017-02-11] MEDS ORDERED: PREDNISONE10 MG PO ×2 (10:44→11:10)
[2017-02-11 12:01] VITALS: BP 134/64
[2017-02-11 12:27] LABS: POINT-OF-CARE METER ID UU14174225
== END 2017-02-11 14:08 | disposition home health service (06) | DRG 291 ==
LOC: EME 10:35 → EDOF 13:34 → ENRESERV 13:38 → 5SOUTH 13:46 → EDOF 13:46 → ENRESERV 14:17 → 5SOUTH 15:04 → ENPENDDIS 02-11 → 5SOUTH 02-11 14:08
PROVIDERS: Internal Medicine; Internal Medicine Cardiovascular Disease; Nurse Practitioner Adult Health; Nurse Practitioner Family
DX: I13.0 Hypertensive heart and chronic kidney disease with heart failure and stage 1 through stage 4 chronic kidney disease, or unspecified chronic kidney disease (principal); I50.33 Acute on chronic diastolic (congestive) heart failure; E11.22 Type 2 diabetes mellitus with diabetic chronic kidney disease; N18.3 Chronic kidney disease, stage 3 (moderate); G93.41 Metabolic encephalopathy; J96.21 Acute and chronic respiratory failure with hypoxia; J44.1 Chronic obstructive pulmonary disease with (acute) exacerbation; E87.5 Hyperkalemia; G47.33 Obstructive sleep apnea (adult) (pediatric); D64.9 Anemia, unspecified; E78.5 Hyperlipidemia, unspecified; K21.9 Gastro-esophageal reflux disease without esophagitis; E03.9 Hypothyroidism, unspecified; F41.9 Anxiety disorder, unspecified; F31.9 Bipolar disorder, unspecified; E66.01 Morbid (severe) obesity due to excess calories; I25.10 Atherosclerotic heart disease of native coronary artery without angina pectoris; G40.909 Epilepsy, unspecified, not intractable, without status epilepticus; G43.909 Migraine, unspecified, not intractable, without status migrainosus; G89.29 Other chronic pain; M54.5 Low back pain; N40.0 Benign prostatic hyperplasia without lower urinary tract symptoms; Z86.73 Personal history of transient ischemic attack (TIA), and cerebral infarction without residual deficits; I25.2 Old myocardial infarction; Z68.42 Body mass index [BMI] 45.0-49.9, adult; Z87.891 Personal history of nicotine dependence; Z91.19 Patient's noncompliance with other medical treatment and regimen; Z99.81 Dependence on supplemental oxygen; Z79.4 Long term (current) use of insulin; Z79.82 Long term (current) use of aspirin; Z88.0 Allergy status to penicillin; Z88.5 Allergy status to narcotic agent
CPT/HCPCS: 36600; 70450; 71010; 71020; 80048; 80053; 82803; 82948; 83880; 84484; 85025; 85027; 87502; 93005; 94640; 94640 76; 94799; 95819; 99202; 99281; 99285; J1644; J1815; J1940; J2405; J7030; J7512

== ENCOUNTER 2017-04-01 21:18 | Observation (INO) | payer OTHER ==
[~2017-04-01] VITALS: Ht 180.3 cm; Wt 124.8 kg
[~2017-04-01 21:18] MED LIST changes: +CLONIDINE HCL0.1 MG PO; +COREG25 M1 PO
[2017-04-01 21:58] LABS: HEMATOCRIT 36.3 % (38.0-50.0); MCH 26.4 PG (29.0-34.0); MCV 82.7 FL (86-99); PLATELET COUNT 121 K/uL (156-360); RBC DIS.WIDTH-CV 14.1 % (11.8-14.6); RBC DIS.WIDTH-SD 41.9 % (39-53)
[2017-04-01 22:00] LABS: HEMOGLOBIN 11.6 G/DL (12.5-16.6); RED BLOOD COUNT 4.39 M/uL (4.00-5.50)
[2017-04-01 22:08] LABS: CHLORIDE 103 mEq/L (99-109); POTASSIUM 4.6 mEq/L (3.7-5.4); SODIUM 142 mEq/L (136-147)
[2017-04-01 22:09] LABS: GLUCOSE 231 mg/dL (70-99)
[2017-04-01 22:13] LABS: CREATININE 1.8 mg/dL (0.6-1.3); GFR ESTIMATE (CALCULATED) 40 mL/min/ (58.99-99999)
[2017-04-01 22:14] LABS: UREA NITROGEN (BUN) 60 mg/dL (9-23)
[2017-04-01 22:23] LABS: TROP-I INTERPRETATION NEGATIVE; TROPONIN-I 0.01 ng/mL (0.0-0.30)
[2017-04-02] MEDS ORDERED: FUROSEMIDE40 MG PO (00:22)
[2017-04-02] MEDS ORDERED: TRAZODONE HCL50 MG PO (00:24)
[2017-04-02] MEDS ORDERED: VENTOLIN HFA18 GM IH (00:24)
[2017-04-02] MEDS ORDERED: LEVEMIR FL100 UNIT/1 SC (00:25)
[2017-04-02 02:38] VITALS: BP 178/77
[2017-04-02 04:20] LABS: TROP-I INTERPRETATION NEGATIVE; TROPONIN-I < 0.01 ng/mL (0.0-0.30)
[2017-04-02 10:36] LABS: HEMATOCRIT 34.2 % (38.0-50.0); HEMOGLOBIN 10.9 G/DL (12.5-16.6); MCH 26.5 PG (29.0-34.0); MCHC 31.9 G/DL (30.0-36.0); PLATELET COUNT 112 K/uL (156-360); RBC DIS.WIDTH-CV 14.4 % (11.8-14.6); RBC DIS.WIDTH-SD 43.6 % (39-53); RED BLOOD COUNT 4.12 M/uL (4.00-5.50); WHITE BLOOD COUNT 6.8 K/uL (4.1-10.2)
[2017-04-02 12:00] VITALS: BP 140/69
[2017-04-02 16:30] VITALS: BP 131/63
[2017-04-02 19:36] VITALS: BP 163/74
[2017-04-02 23:17] VITALS: BP 162/70
[2017-04-03 03:23] VITALS: BP 143/67
[2017-04-03 06:28] LABS: CHLORIDE 104 MEQ/L (99-109); CREATININE 1.8 MG/DL (0.6-1.3); GFR ESTIMATE (CALCULATED) 40 mL/min/ (58.99-99999); GLUCOSE 132 mg/dL (70-99); POTASSIUM 4.8 MEQ/L (3.7-5.4); SODIUM 138 MEQ/L (136-147); UREA NITROGEN (BUN) 51 mg/dL (9-23)
[2017-04-03 06:44] LABS: BASOPHIL (%) 0.9 % (0-1); BASOPHIL COUNT 0.1 K/uL (0-0.1); EOSINOPHIL (%) 7.2 % (0-5); EOSINOPHIL COUNT 0.5 K/uL (0-0.3); HEMATOCRIT 31.2 % (38.0-50.0); HEMOGLOBIN 9.9 G/DL (12.5-16.6); IMMATURE GRANULOCYTE (%) 0.5 % (0.0-0.7); LYMPHOCYTE (%) 38.7 % (15-42); LYMPHOCYTE COUNT 2.5 K/uL (1.0-2.8); MCH 26.4 PG (29.0-34.0); MCHC 31.7 G/DL (30.0-36.0); MCV 83.2 FL (86-99); MONOCYTE (%) 7.7 % (3-12); MONOCYTE COUNT 0.5 K/uL (0-0.8); NEUTROPHIL COUNT 2.9 K/uL (1.8-6.4); PLATELET COUNT 102 K/uL (156-360); RBC DIS.WIDTH-CV 14.3 % (11.8-14.6); RED BLOOD COUNT 3.75 M/uL (4.00-5.50); WHITE BLOOD COUNT 6.5 K/uL (4.1-10.2)
[2017-04-03 10:48] VITALS: BP 134/58
[2017-04-03 11:34] LABS: TROP-I INTERPRETATION NEGATIVE; TROPONIN-I < 0.01 ng/mL (0.0-0.30)
== END 2017-04-03 16:00 | disposition home or self-care (01) ==
LOC: EME 21:18 → EDOF 04-02 00:29 → 5WEST 04-02 00:29 → EDOF 04-02 00:29 → ENRESERV 04-02 00:31 → 5WEST 04-02 02:10
PROVIDERS: Hospitalist; Internal Medicine
DX: R07.9 Chest pain, unspecified (principal); R10.13 Epigastric pain; I13.0 Hypertensive heart and chronic kidney disease with heart failure and stage 1 through stage 4 chronic kidney disease, or unspecified chronic kidney disease; I50.9 Heart failure, unspecified; E11.22 Type 2 diabetes mellitus with diabetic chronic kidney disease; N18.9 Chronic kidney disease, unspecified; G47.33 Obstructive sleep apnea (adult) (pediatric); E78.5 Hyperlipidemia, unspecified; J44.9 Chronic obstructive pulmonary disease, unspecified; D64.9 Anemia, unspecified; D69.6 Thrombocytopenia, unspecified; G40.909 Epilepsy, unspecified, not intractable, without status epilepticus; R09.81 Nasal congestion; I25.10 Atherosclerotic heart disease of native coronary artery without angina pectoris; Z79.82 Long term (current) use of aspirin; J96.10 Chronic respiratory failure, unspecified whether with hypoxia or hypercapnia; Z86.73 Personal history of transient ischemic attack (TIA), and cerebral infarction without residual deficits; K21.9 Gastro-esophageal reflux disease without esophagitis; F41.9 Anxiety disorder, unspecified; F31.9 Bipolar disorder, unspecified; Z86.14 Personal history of Methicillin resistant Staphylococcus aureus infection; E66.01 Morbid (severe) obesity due to excess calories; Z68.37 Body mass index [BMI] 37.0-37.9, adult; R06.02 Shortness of breath; Z87.891 Personal history of nicotine dependence; Z99.81 Dependence on supplemental oxygen; Z90.49 Acquired absence of other specified parts of digestive tract; Z82.49 Family history of ischemic heart disease and other diseases of the circulatory system; Z88.0 Allergy status to penicillin; Z88.5 Allergy status to narcotic agent
CPT/HCPCS: 71046; 80048; 82948; 84484; 85025; 85027; 87502; 87641; 93005; 94640; 94640 76; 99202; 99281; 99284; C9113; G0378; J1644; J1815; J2270; J7040

== ENCOUNTER 2017-05-06 11:26 | Observation (INO) | payer OTHER ==
[~2017-05-06] VITALS: Ht 180.3 cm; Wt 128.3 kg
[~2017-05-06 11:26] MED LIST changes: +TRAZODONE HCL50 MG PO
[2017-05-06 12:00] LABS: BASOPHIL (%) 0.6 % (0-1); EOSINOPHIL (%) 5.6 % (0-5); EOSINOPHIL COUNT 0.4 K/uL (0-0.3); HEMATOCRIT 34.5 % (38.0-50.0); HEMOGLOBIN 11.2 G/DL (12.5-16.6); IMMATURE GRANULOCYTE (%) 0.3 % (0.0-0.7); LYMPHOCYTE (%) 31.8 % (15-42); LYMPHOCYTE COUNT 2.1 K/uL (1.0-2.8); MCH 26.8 PG (29.0-34.0); MCHC 32.5 G/DL (30.0-36.0); MCV 82.5 FL (86-99); MONOCYTE (%) 5.7 % (3-12); MONOCYTE COUNT 0.4 K/uL (0-0.8); NEUTROPHIL COUNT 3.7 K/uL (1.8-6.4); PLATELET COUNT 113 K/uL (156-360); RBC DIS.WIDTH-CV 14.9 % (11.8-14.6); RED BLOOD COUNT 4.18 M/uL (4.00-5.50); WHITE BLOOD COUNT 6.6 K/uL (4.1-10.2)
[2017-05-06 12:06] LABS: INTER. NORMALIZED RATIO 1.1
[2017-05-06 12:09] LABS: CHLORIDE 110 mEq/L (99-109); POTASSIUM 5.1 mEq/L (3.7-5.4); PTT 27.6 SEC (25-37); SODIUM 142 mEq/L (136-147)
[2017-05-06 12:10] LABS: GLUCOSE 149 mg/dL (70-99)
[2017-05-06 12:14] LABS: CREATININE 1.6 mg/dL (0.6-1.3); GFR ESTIMATE (CALCULATED) 46 mL/min/ (58.99-99999)
[2017-05-06 12:15] LABS: UREA NITROGEN (BUN) 29 mg/dL (9-23)
[2017-05-06 12:21] LABS: TROP-I INTERPRETATION NEGATIVE; TROPONIN-I < 0.01 ng/mL (0.0-0.30)
[2017-05-06 16:11] VITALS: BP 171/77
[2017-05-06 18:52] LABS: TROP-I INTERPRETATION NEGATIVE; TROPONIN-I < 0.01 ng/mL (0.0-0.30)
[2017-05-06 19:08] VITALS: BP 156/73
[2017-05-07 00:09] VITALS: BP 145/70
[2017-05-07 01:28] LABS: TROP-I INTERPRETATION NEGATIVE; TROPONIN-I < 0.01 ng/mL (0.0-0.30)
[2017-05-07 04:39] VITALS: BP 137/66
[2017-05-07 07:00] LABS: CHLORIDE 108 MEQ/L (99-109); CREATININE 1.7 MG/DL (0.6-1.3); GFR ESTIMATE (CALCULATED) 43 mL/min/ (58.99-99999); GLUCOSE 154 mg/dL (70-99); POTASSIUM 4.9 MEQ/L (3.7-5.4); SODIUM 139 MEQ/L (136-147); UREA NITROGEN (BUN) 31 mg/dL (9-23)
[2017-05-07 07:45] VITALS: BP 145/65
[2017-05-07 11:57] VITALS: BP 124/62
== END 2017-05-07 14:11 | disposition home or self-care (01) ==
LOC: EME 11:26 → EDOF 13:15 → 5WEST 13:15 → EDOF 13:15 → ENRESERV 13:18 → 5WEST 15:26 → ENPENDDIS 05-07 → 5WEST 05-07 14:11
PROVIDERS: Emergency Medicine; Internal Medicine
DX: R07.9 Chest pain, unspecified (principal); J96.10 Chronic respiratory failure, unspecified whether with hypoxia or hypercapnia; I25.10 Atherosclerotic heart disease of native coronary artery without angina pectoris; I13.0 Hypertensive heart and chronic kidney disease with heart failure and stage 1 through stage 4 chronic kidney disease, or unspecified chronic kidney disease; I50.9 Heart failure, unspecified; N18.3 Chronic kidney disease, stage 3 (moderate); E78.5 Hyperlipidemia, unspecified; G47.33 Obstructive sleep apnea (adult) (pediatric); J44.9 Chronic obstructive pulmonary disease, unspecified; K21.9 Gastro-esophageal reflux disease without esophagitis; D64.9 Anemia, unspecified; N40.0 Benign prostatic hyperplasia without lower urinary tract symptoms; E11.22 Type 2 diabetes mellitus with diabetic chronic kidney disease; Z79.4 Long term (current) use of insulin; E03.9 Hypothyroidism, unspecified; Z90.49 Acquired absence of other specified parts of digestive tract; Z88.0 Allergy status to penicillin; Z88.5 Allergy status to narcotic agent; Z99.81 Dependence on supplemental oxygen; Z86.14 Personal history of Methicillin resistant Staphylococcus aureus infection; Z86.73 Personal history of transient ischemic attack (TIA), and cerebral infarction without residual deficits; F41.9 Anxiety disorder, unspecified; Z87.891 Personal history of nicotine dependence
CPT/HCPCS: 71045; 80048; 82948; 83880; 84484; 85025; 85610; 85730; 87641; 93005; 94640; 94640 76; 99202; 99281; 99285; G0378; J1644; J1815; J1885

== ENCOUNTER 2017-05-24 04:19 | Inpatient (IN) | payer OTHER ==
[~2017-05-24] VITALS: Ht 180.3 cm; Wt 132.6 kg
[2017-05-24 05:21] LABS: ALBUMIN 3.7 g/dL (3.2-4.8); CHLORIDE 102 mEq/L (99-109); POTASSIUM 4.4 mEq/L (3.7-5.4); SODIUM 140 mEq/L (136-147)
[2017-05-24 05:23] LABS: GLUCOSE 247 mg/dL (70-99); TOTAL PROTEIN 6.3 g/dL (6.4-8.3)
[2017-05-24 05:25] LABS: TOTAL BILIRUBIN 0.3 mg/dL (0.0-1.0)
[2017-05-24 05:27] LABS: ALKALINE PHOSPHATASE 77 IU/L (3-129); CREATININE 2.6 mg/dL (0.6-1.3); GFR ESTIMATE (CALCULATED) 26 mL/min/ (58.99-99999)
[2017-05-24 05:28] LABS: UREA NITROGEN (BUN) 46 mg/dL (9-23)
[2017-05-24 05:29] LABS: AST (GOT) 12 IU/L (2-34)
[2017-05-24 05:30] LABS: ALT (GPT) 14 IU/L (3-49); LIPASE 56 U/L (1.0-51.0)
[2017-05-24 05:34] LABS: TROP-I INTERPRETATION NEGATIVE; TROPONIN-I < 0.01 ng/mL (0.0-0.30)
[2017-05-24 05:43] LABS: HEMOGLOBIN 10.2 G/DL (12.5-16.6); MCH 27.3 PG (29.0-34.0); MCHC 32.9 G/DL (30.0-36.0); MCV 82.9 FL (86-99); PLATELET COUNT 124 K/uL (156-360); RBC DIS.WIDTH-CV 15.6 % (11.8-14.6); RBC DIS.WIDTH-SD 46.6 % (39-53); RED BLOOD COUNT 3.74 M/uL (4.00-5.50); WHITE BLOOD COUNT 8.2 K/uL (4.1-10.2)
[2017-05-24 12:04] LABS: TROP-I INTERPRETATION NEGATIVE; TROPONIN-I < 0.01 ng/mL (0.0-0.30)
[2017-05-24 14:54] VITALS: BP 153/70
[2017-05-24 16:56] VITALS: BP 151/69
[2017-05-24 18:16] LABS: TROP-I INTERPRETATION NEGATIVE; TROPONIN-I < 0.01 ng/mL (0.0-0.30)
[2017-05-24 19:48] VITALS: BP 132/63
[2017-05-24 23:17] VITALS: BP 150/68
[2017-05-25 03:34] VITALS: BP 144/66
[2017-05-25 05:28] LABS: CHLORIDE 98 MEQ/L (99-109); CREATININE 2.2 MG/DL (0.6-1.3); GFR ESTIMATE (CALCULATED) 32 mL/min/ (58.99-99999); GLUCOSE 325 mg/dL (70-99); POTASSIUM 4.5 MEQ/L (3.7-5.4); UREA NITROGEN (BUN) 56 mg/dL (9-23)
[2017-05-25 05:34] LABS: SODIUM 132 MEQ/L (136-147)
[2017-05-25 08:33] VITALS: BP 147/66
[2017-05-25 11:58] VITALS: BP 135/65
[2017-05-25 16:20] VITALS: BP 140/68
[2017-05-25 20:20] VITALS: BP 149/67
[2017-05-25 21:37] LABS: GLUCOSE 449 mg/dL (70-99)
[2017-05-26] VITALS (7 sets, daily range): BP systolic 133–154; BP diastolic 63–68
[2017-05-26 06:20] LABS: HEMATOCRIT 27.3 % (38.0-50.0); MCH 26.7 PG (29.0-34.0); PLATELET COUNT 128 K/uL (156-360); RBC DIS.WIDTH-CV 15.5 % (11.8-14.6); RBC DIS.WIDTH-SD 44.9 % (39-53); RED BLOOD COUNT 3.37 M/uL (4.00-5.50); WHITE BLOOD COUNT 12.9 K/uL (4.1-10.2)
[2017-05-26 06:56] LABS: CHLORIDE 97 MEQ/L (99-109); CREATININE 2.3 MG/DL (0.6-1.3); GFR ESTIMATE (CALCULATED) 30 mL/min/ (58.99-99999); GLUCOSE 349 mg/dL (70-99); SODIUM 132 MEQ/L (136-147); UREA NITROGEN (BUN) 77 mg/dL (9-23)
[2017-05-26 15:18] LABS: GLUCOSE 400 mg/dL (70-99)
[2017-05-27] VITALS (7 sets, daily range): BP systolic 134–176; BP diastolic 66–71
[2017-05-27 09:53] LABS: CHLORIDE 103 MEQ/L (99-109); CREATININE 2.3 MG/DL (0.6-1.3); GFR ESTIMATE (CALCULATED) 30 mL/min/ (58.99-99999); GLUCOSE 310 mg/dL (70-99); POTASSIUM 4.4 MEQ/L (3.7-5.4); SODIUM 135 MEQ/L (136-147); UREA NITROGEN (BUN) 77 mg/dL (9-23)
[2017-05-27 12:23] LABS: APPEARANCE CLEAR ((CLEAR)); BILIRUBIN NEGATIVE; BLOOD NEGATIVE; COLOR STRAW ((YELLOW)); GLUCOSE (STRIP) 50; KETONES NEGATIVE; LEUKOCYTES NEGATIVE; NITRITE NEGATIVE; PROTEIN (STRIP) NEGATIVE; SPECIFIC GRAVITY 1.008 (1.000-1.030); UROBILINOGEN 0.2 MG/DL (0.2-1.0)
[2017-05-27 12:48] LABS: UR CREATININE CONCENTRATION 57.3 MG/DL
[2017-05-28 06:53] LABS: HEMATOCRIT 27.6 % (38.0-50.0); MCH 26.6 PG (29.0-34.0); MCHC 32.6 G/DL (30.0-36.0); MCV 81.7 FL (86-99); PLATELET COUNT 126 K/uL (156-360); RBC DIS.WIDTH-CV 15.9 % (11.8-14.6); RBC DIS.WIDTH-SD 46.4 % (39-53); RED BLOOD COUNT 3.38 M/uL (4.00-5.50)
[2017-05-28 07:11] LABS: ALBUMIN 3.3 G/DL (3.2-4.8); CHLORIDE 102 MEQ/L (99-109); GFR ESTIMATE (CALCULATED) 36 mL/min/ (58.99-99999); GLUCOSE 238 mg/dL (70-99); PHOSPHORUS 3.9 mg/dL (2.5-4.9); POTASSIUM 4.5 MEQ/L (3.7-5.4); SODIUM 135 MEQ/L (136-147); UREA NITROGEN (BUN) 69 mg/dL (9-23)
[2017-05-28 08:14] VITALS: BP 153/72
[2017-05-28] MEDS ORDERED: PREDNISONE10 MG PO (13:44)
[2017-05-28 13:45] LABS: IRON 54 MCG/DL (35-150); TRANSFERRIN (TIBC) 240.6 mg/dL (215-380); TRANSFERRIN SATUR. 22 % (20-55)
== END 2017-05-28 16:34 | disposition home health service (06) | DRG 190 ==
LOC: EME → EDBD 04:19 → EDOF 08:02 → 4SOUTH 08:02 → ENRESERV 08:05 → 4SOUTH 14:32 → ENRESERV 05-27 04:47 → 5SOUTH 05-27 05:49 → 4SOUTH 05-27 05:49 → 5SOUTH 05-28 16:34
PROVIDERS: Emergency Medicine; Internal Medicine; Internal Medicine Nephrology; Physician Assistant
DX: J44.1 Chronic obstructive pulmonary disease with (acute) exacerbation (principal); J96.20 Acute and chronic respiratory failure, unspecified whether with hypoxia or hypercapnia; N17.9 Acute kidney failure, unspecified; D64.9 Anemia, unspecified; E87.1 Hypo-osmolality and hyponatremia; E11.65 Type 2 diabetes mellitus with hyperglycemia; D72.829 Elevated white blood cell count, unspecified; T38.0X5A Adverse effect of glucocorticoids and synthetic analogues, initial encounter; I13.0 Hypertensive heart and chronic kidney disease with heart failure and stage 1 through stage 4 chronic kidney disease, or unspecified chronic kidney disease; I50.32 Chronic diastolic (congestive) heart failure; E11.22 Type 2 diabetes mellitus with diabetic chronic kidney disease; N18.3 Chronic kidney disease, stage 3 (moderate); G47.33 Obstructive sleep apnea (adult) (pediatric); Z99.81 Dependence on supplemental oxygen; E66.9 Obesity, unspecified; Z68.41 Body mass index [BMI] 40.0-44.9, adult; E03.9 Hypothyroidism, unspecified; K21.9 Gastro-esophageal reflux disease without esophagitis; N40.0 Benign prostatic hyperplasia without lower urinary tract symptoms; E78.5 Hyperlipidemia, unspecified; G89.29 Other chronic pain; M54.5 Low back pain; G43.909 Migraine, unspecified, not intractable, without status migrainosus; F31.9 Bipolar disorder, unspecified; F41.9 Anxiety disorder, unspecified; F10.11 Alcohol abuse, in remission; I25.2 Old myocardial infarction; Z79.4 Long term (current) use of insulin; Z82.49 Family history of ischemic heart disease and other diseases of the circulatory system; Z86.73 Personal history of transient ischemic attack (TIA), and cerebral infarction without residual deficits; Z87.891 Personal history of nicotine dependence
CPT/HCPCS: 71046; 71250; 76770; 80048; 80053; 80069; 81003; 82436; 82570; 82948; 83540; 83690; 83880; 84133; 84295; 84300; 84466; 84484; 84540; 84999; 85027; 93005; 93306; 94640; 94640 76; 94760; 94799; 99202; 99281; 99285; J1644; J1815; J2920; J2930; J7030; J7040; J7512

== ENCOUNTER 2017-06-23 15:58 | Observation (INO) | payer OTHER ==
[~2017-06-23] VITALS: Ht 180.3 cm; Wt 125.9 kg
[2017-06-23 16:43] LABS: BASOPHIL (%) 0.8 % (0-1); EOSINOPHIL (%) 14.3 % (0-5); EOSINOPHIL COUNT 0.7 K/uL (0-0.3); HEMATOCRIT 35.2 % (38.0-50.0); IMMATURE GRANULOCYTE (%) 0.6 % (0.0-0.7); LYMPHOCYTE (%) 31.6 % (15-42); LYMPHOCYTE COUNT 1.6 K/uL (1.0-2.8); MCH 27.9 PG (29.0-34.0); MCHC 33.8 G/DL (30.0-36.0); MCV 82.6 FL (86-99); MONOCYTE (%) 9.4 % (3-12); MONOCYTE COUNT 0.5 K/uL (0-0.8); NEUTROPHIL (%) 43.3 % (45-76); NEUTROPHIL COUNT 2.2 K/uL (1.8-6.4); PLATELET COUNT 137 K/uL (156-360); RBC DIS.WIDTH-CV 14.9 % (11.8-14.6); RBC DIS.WIDTH-SD 44.3 % (39-53); WHITE BLOOD COUNT 5.1 K/uL (4.1-10.2)
[2017-06-23 16:44] LABS: HEMOGLOBIN 11.9 G/DL (12.5-16.6); RED BLOOD COUNT 4.26 M/uL (4.00-5.50)
[2017-06-23 16:46] LABS: CHLORIDE 101 mEq/L (99-109); MAGNESIUM 1.9 mg/dL (1.3-2.7); SODIUM 143 mEq/L (136-147)
[2017-06-23 16:48] LABS: GLUCOSE 272 mg/dL (70-99); TOTAL PROTEIN 6.7 g/dL (6.4-8.3)
[2017-06-23 16:50] LABS: TOTAL BILIRUBIN 0.5 mg/dL (0.0-1.0)
[2017-06-23 16:52] LABS: ALKALINE PHOSPHATASE 94 IU/L (3-129); CREATININE 1.7 mg/dL (0.6-1.3); GFR ESTIMATE (CALCULATED) 43 mL/min/ (58.99-99999)
[2017-06-23 16:53] LABS: UREA NITROGEN (BUN) 27 mg/dL (9-23)
[2017-06-23 16:54] LABS: AST (GOT) 14 IU/L (2-34)
[2017-06-23 16:55] LABS: ALT (GPT) 18 IU/L (3-49); CREATINE KINASE 48 IU/L (1-294); TOTAL CK 48 IU/L (1-294)
[2017-06-23 16:58] LABS: TROP-I INTERPRETATION NEGATIVE; TROPONIN-I < 0.01 ng/mL (0.0-0.30)
[2017-06-23 17:01] LABS: CK-MB 0.7 ng/mL (0.0-4.9); CKMB RELATIVE INDEX 1.5 (0.0-3.9)
[2017-06-23 17:46] LABS: THYROTROPIN (TSH) 3.9 MIU/L (0.4-5.5)
[2017-06-23 19:34] LABS: TROP-I INTERPRETATION NEGATIVE; TROPONIN-I < 0.01 ng/mL (0.0-0.30)
[2017-06-23 23:20] VITALS: BP 168/77
[2017-06-24 01:08] LABS: TROP-I INTERPRETATION NEGATIVE; TROPONIN-I < 0.01 ng/mL (0.0-0.30)
[2017-06-24 04:11] VITALS: BP 128/65
[2017-06-24 05:37] LABS: HEMATOCRIT 31.5 % (38.0-50.0); HEMOGLOBIN 10.2 G/DL (12.5-16.6); MCH 26.8 PG (29.0-34.0); MCHC 32.4 G/DL (30.0-36.0); MCV 82.9 FL (86-99); PLATELET COUNT 131 K/uL (156-360); RBC DIS.WIDTH-SD 45.8 % (39-53); WHITE BLOOD COUNT 4.9 K/uL (4.1-10.2)
[2017-06-24 05:49] LABS: TROP-I INTERPRETATION NEGATIVE; TROPONIN-I < 0.01 ng/mL (0.0-0.30)
[2017-06-24 06:13] LABS: CHLORIDE 100 MEQ/L (99-109); CREATININE 1.7 MG/DL (0.6-1.3); GFR ESTIMATE (CALCULATED) 43 mL/min/ (58.99-99999); GLUCOSE 309 mg/dL (70-99); POTASSIUM 3.6 MEQ/L (3.7-5.4); SODIUM 141 MEQ/L (136-147); UREA NITROGEN (BUN) 28 mg/dL (9-23)
[2017-06-24 07:24] VITALS: BP 115/74
[2017-06-24 11:50] VITALS: BP 133/61
[2017-06-24 15:35] VITALS: BP 135/65
== END 2017-06-24 16:33 | disposition home or self-care (01) ==
LOC: EME 15:58 → 5WEST 22:21 → EDOF 22:21 → ENRESERV 22:28 → 5WEST 23:14 → ENPENDDIS 06-24 → 5WEST 06-24 16:33
PROVIDERS: Emergency Medicine; Internal Medicine
DX: R07.89 Other chest pain (principal); I25.10 Atherosclerotic heart disease of native coronary artery without angina pectoris; I13.0 Hypertensive heart and chronic kidney disease with heart failure and stage 1 through stage 4 chronic kidney disease, or unspecified chronic kidney disease; I50.9 Heart failure, unspecified; N18.9 Chronic kidney disease, unspecified; D64.9 Anemia, unspecified; J44.9 Chronic obstructive pulmonary disease, unspecified; Z99.81 Dependence on supplemental oxygen; K21.9 Gastro-esophageal reflux disease without esophagitis; G47.33 Obstructive sleep apnea (adult) (pediatric); E78.5 Hyperlipidemia, unspecified; E11.22 Type 2 diabetes mellitus with diabetic chronic kidney disease; F32.9 Major depressive disorder, single episode, unspecified; F41.9 Anxiety disorder, unspecified; E03.9 Hypothyroidism, unspecified; N40.0 Benign prostatic hyperplasia without lower urinary tract symptoms; Z86.73 Personal history of transient ischemic attack (TIA), and cerebral infarction without residual deficits; Z87.891 Personal history of nicotine dependence; R60.0 Localized edema; Z99.3 Dependence on wheelchair; Z90.49 Acquired absence of other specified parts of digestive tract; Z79.82 Long term (current) use of aspirin; Z79.4 Long term (current) use of insulin; Z82.49 Family history of ischemic heart disease and other diseases of the circulatory system; Z82.5 Family history of asthma and other chronic lower respiratory diseases; Z88.0 Allergy status to penicillin; Z88.8 Allergy status to other drugs, medicaments and biological substances; Z88.5 Allergy status to narcotic agent
CPT/HCPCS: 71045; 80048; 80053; 80164; 82550; 82553; 82948; 83735; 83880; 84443; 84484; 85025; 85027; 93005; 94640; 94640 76; 94799; 99202; 99281; 99285; G0378; J1644; J1815; J7030

== ENCOUNTER 2017-07-11 03:56 | Inpatient (IN) | payer OTHER ==
[~2017-07-11] VITALS: Ht 180.3 cm; Wt 139.5 kg
[2017-07-11 05:23] LABS: BASOPHIL (%) 1.1 % (0-1); BASOPHIL COUNT 0.1 K/uL (0-0.1); EOSINOPHIL (%) 8.7 % (0-5); EOSINOPHIL COUNT 0.6 K/uL (0-0.3); HEMATOCRIT 31.8 % (38.0-50.0); HEMOGLOBIN 10.9 G/DL (12.5-16.6); IMMATURE GRANULOCYTE (%) 0.8 % (0.0-0.7); LYMPHOCYTE (%) 31.9 % (15-42); LYMPHOCYTE COUNT 2.3 K/uL (1.0-2.8); MCH 28.3 PG (29.0-34.0); MCHC 34.3 G/DL (30.0-36.0); MCV 82.6 FL (86-99); MONOCYTE (%) 8.3 % (3-12); MONOCYTE COUNT 0.6 K/uL (0-0.8); NEUTROPHIL (%) 49.2 % (45-76); NEUTROPHIL COUNT 3.5 K/uL (1.8-6.4); PLATELET COUNT 159 K/uL (156-360); RBC DIS.WIDTH-CV 14.5 % (11.8-14.6); RBC DIS.WIDTH-SD 43.1 % (39-53); RED BLOOD COUNT 3.85 M/uL (4.00-5.50); WHITE BLOOD COUNT 7.2 K/uL (4.1-10.2)
[2017-07-11 05:32] LABS: ALBUMIN 3.7 g/dL (3.2-4.8); CHLORIDE 102 mEq/L (99-109); POTASSIUM 4.3 mEq/L (3.7-5.4); SODIUM 139 mEq/L (136-147)
[2017-07-11 05:35] LABS: TOTAL PROTEIN 6.4 g/dL (6.4-8.3)
[2017-07-11 05:37] LABS: TOTAL BILIRUBIN 0.2 mg/dL (0.0-1.0)
[2017-07-11 05:38] LABS: ALKALINE PHOSPHATASE 86 IU/L (3-129); GFR ESTIMATE (CALCULATED) 36 mL/min/ (58.99-99999)
[2017-07-11 05:39] LABS: UREA NITROGEN (BUN) 42 mg/dL (9-23)
[2017-07-11 05:40] LABS: AST (GOT) 10 IU/L (2-34)
[2017-07-11 05:41] LABS: ALT (GPT) 10 IU/L (3-49)
[2017-07-11 05:45] LABS: TROP-I INTERPRETATION NEGATIVE; TROPONIN-I 0.01 ng/mL (0.0-0.30)
[2017-07-11 05:47] LABS: GLUCOSE 416 mg/dL (70-99)
[2017-07-11 06:32] LABS: LIPASE 224 U/L (1.0-51.0)
[2017-07-11] MEDS ORDERED: KLONOPIN0.5 M1 PO (08:52)
[2017-07-11 10:44] LABS: HEMOGLOBIN A1c (GLYCOHEMOGLOB) 10.4 % (Below 5.7)
[2017-07-11 12:01] VITALS: BP 151/72
[2017-07-11 15:33] VITALS: BP 156/71
[2017-07-11 20:34] VITALS: BP 151/67
[2017-07-12] VITALS (7 sets, daily range): BP systolic 127–165; BP diastolic 56–71
[2017-07-12 06:15] LABS: HEMATOCRIT 31.4 % (38.0-50.0); HEMOGLOBIN 10.4 G/DL (12.5-16.6); MCH 28.1 PG (29.0-34.0); MCHC 33.1 G/DL (30.0-36.0); MCV 84.9 FL (86-99); PLATELET COUNT 134 K/uL (156-360); RBC DIS.WIDTH-CV 14.6 % (11.8-14.6); RBC DIS.WIDTH-SD 45.1 % (39-53); WHITE BLOOD COUNT 5.6 K/uL (4.1-10.2)
[2017-07-12 06:37] LABS: CHLORIDE 104 MEQ/L (99-109); CREATININE 1.6 MG/DL (0.6-1.3); GFR ESTIMATE (CALCULATED) 46 mL/min/ (58.99-99999); GLUCOSE 131 mg/dL (70-99); LIPASE 26 U/L (1.0-51.0); POTASSIUM 4.2 MEQ/L (3.7-5.4); SODIUM 139 MEQ/L (136-147); UREA NITROGEN (BUN) 35 mg/dL (9-23)
[2017-07-13 03:25] VITALS: BP 128/61
[2017-07-13 05:05] LABS: HEMATOCRIT 32.3 % (38.0-50.0); HEMOGLOBIN 10.7 G/DL (12.5-16.6); MCH 28.1 PG (29.0-34.0); MCHC 33.1 G/DL (30.0-36.0); MCV 84.8 FL (86-99); PLATELET COUNT 124 K/uL (156-360); RBC DIS.WIDTH-CV 14.8 % (11.8-14.6); RBC DIS.WIDTH-SD 44.7 % (39-53); RED BLOOD COUNT 3.81 M/uL (4.00-5.50); WHITE BLOOD COUNT 6.4 K/uL (4.1-10.2)
[2017-07-13 05:10] LABS: CHLORIDE 106 mEq/L (99-109); POTASSIUM 4.6 mEq/L (3.7-5.4); SODIUM 139 mEq/L (136-147)
[2017-07-13 05:12] LABS: GLUCOSE 163 mg/dL (70-99)
[2017-07-13 05:16] LABS: CREATININE 1.5 mg/dL (0.6-1.3); GFR ESTIMATE (CALCULATED) 50 mL/min/ (58.99-99999)
[2017-07-13 05:17] LABS: UREA NITROGEN (BUN) 28 mg/dL (9-23)
[2017-07-13 05:19] LABS: LIPASE 30 U/L (1.0-51.0)
[2017-07-13 07:37] VITALS: BP 145/64
[2017-07-13 12:09] VITALS: BP 143/65
[2017-07-13 15:39] VITALS: BP 149/67
[2017-07-13 20:14] VITALS: BP 156/66
[2017-07-13 23:09] VITALS: BP 150/67
[2017-07-14 03:14] VITALS: BP 125/61
[2017-07-14 08:36] VITALS: BP 156/70
[2017-07-14 11:59] VITALS: BP 159/71
[2017-07-14 16:09] VITALS: BP 143/65
== END 2017-07-14 18:42 | disposition home or self-care (01) | DRG 439 ==
LOC: EME 03:56 → 3EAST 08:33 → EDOF 08:33 → ENRESERV 08:40 → 3EAST 11:35
PROVIDERS: Emergency Medicine; Internal Medicine; Internal Medicine Gastroenterology
DX: K85.90 Acute pancreatitis without necrosis or infection, unspecified (principal); N17.9 Acute kidney failure, unspecified; E66.01 Morbid (severe) obesity due to excess calories; E11.65 Type 2 diabetes mellitus with hyperglycemia; I13.0 Hypertensive heart and chronic kidney disease with heart failure and stage 1 through stage 4 chronic kidney disease, or unspecified chronic kidney disease; N18.3 Chronic kidney disease, stage 3 (moderate); K21.9 Gastro-esophageal reflux disease without esophagitis; G47.33 Obstructive sleep apnea (adult) (pediatric); I25.10 Atherosclerotic heart disease of native coronary artery without angina pectoris; D64.9 Anemia, unspecified; E78.5 Hyperlipidemia, unspecified; J44.9 Chronic obstructive pulmonary disease, unspecified; E11.22 Type 2 diabetes mellitus with diabetic chronic kidney disease; N40.0 Benign prostatic hyperplasia without lower urinary tract symptoms; Z68.41 Body mass index [BMI] 40.0-44.9, adult; G40.802 Other epilepsy, not intractable, without status epilepticus; E03.9 Hypothyroidism, unspecified; Z86.73 Personal history of transient ischemic attack (TIA), and cerebral infarction without residual deficits; Z87.891 Personal history of nicotine dependence; I50.9 Heart failure, unspecified; Z79.4 Long term (current) use of insulin
CPT/HCPCS: 71046; 74176; 78582; 80048; 80053; 82948; 83036; 83690; 83880; 84484; 85025; 85027; 85379; 93005; 94640; 94640 76; 94799; 99202; 99281; 99285; A9539; A9540; J1650; J1815; J2270; J2405; J7030; J7644

== ENCOUNTER 2017-07-16 17:56 | Emergency (ER) | payer OTHER ==
[~2017-07-16] VITALS: Ht 180.3 cm; Wt 131.9 kg
[2017-07-16 18:47] LABS: HEMATOCRIT 33.5 % (38.0-50.0); HEMOGLOBIN 11.2 G/DL (12.5-16.6); MCH 28.7 PG (29.0-34.0); MCHC 33.4 G/DL (30.0-36.0); MCV 85.9 FL (86-99); PLATELET COUNT 128 K/uL (156-360); RBC DIS.WIDTH-SD 46.2 % (39-53); WHITE BLOOD COUNT 6.5 K/uL (4.1-10.2)
[2017-07-16 18:56] LABS: ALBUMIN 3.8 g/dL (3.2-4.8); CHLORIDE 103 mEq/L (99-109); POTASSIUM 5.1 mEq/L (3.7-5.4); SODIUM 141 mEq/L (136-147)
[2017-07-16 18:58] LABS: GLUCOSE 373 mg/dL (70-99)
[2017-07-16 18:59] LABS: TOTAL PROTEIN 6.7 g/dL (6.4-8.3)
[2017-07-16 19:02] LABS: ALKALINE PHOSPHATASE 79 IU/L (3-129); CREATININE 1.7 mg/dL (0.6-1.3); GFR ESTIMATE (CALCULATED) 43 mL/min/ (58.99-99999)
[2017-07-16 19:03] LABS: UREA NITROGEN (BUN) 28 mg/dL (9-23)
[2017-07-16 19:06] LABS: LIPASE 36 U/L (1.0-51.0)
[2017-07-16 19:10] LABS: ALT (GPT) 50 IU/L (3-49); AST (GOT) 32 IU/L (2-34); TOTAL BILIRUBIN 0.3 mg/dL (0.0-1.0)
[2017-07-16] MEDS ORDERED: PERCOCET 5/31 TABLET PO (19:45)
[2017-07-16] MEDS ORDERED: ZOFRAN ODT4 MG PO (19:45)
[2017-07-16 20:23] VITALS: BP 159/89
== END 2017-07-16 20:24 | disposition home or self-care (01) ==
LOC: EME 17:56
PROVIDERS: Physician Assistant
DX: R10.9 Unspecified abdominal pain (principal); J44.9 Chronic obstructive pulmonary disease, unspecified; E11.22 Type 2 diabetes mellitus with diabetic chronic kidney disease; I12.9 Hypertensive chronic kidney disease with stage 1 through stage 4 chronic kidney disease, or unspecified chronic kidney disease; N18.9 Chronic kidney disease, unspecified; K21.9 Gastro-esophageal reflux disease without esophagitis; E78.5 Hyperlipidemia, unspecified; E03.9 Hypothyroidism, unspecified; G47.33 Obstructive sleep apnea (adult) (pediatric); I25.2 Old myocardial infarction; M19.90 Unspecified osteoarthritis, unspecified site; G43.909 Migraine, unspecified, not intractable, without status migrainosus; R56.9 Unspecified convulsions; F32.9 Major depressive disorder, single episode, unspecified; F31.9 Bipolar disorder, unspecified; F41.9 Anxiety disorder, unspecified; Z79.82 Long term (current) use of aspirin; Z79.4 Long term (current) use of insulin; Z79.51 Long term (current) use of inhaled steroids; Z99.81 Dependence on supplemental oxygen; Z87.891 Personal history of nicotine dependence; Z86.79 Personal history of other diseases of the circulatory system; Z87.19 Personal history of other diseases of the digestive system; Z86.73 Personal history of transient ischemic attack (TIA), and cerebral infarction without residual deficits; Z87.01 Personal history of pneumonia (recurrent); Z86.14 Personal history of Methicillin resistant Staphylococcus aureus infection; Z90.49 Acquired absence of other specified parts of digestive tract; Z88.5 Allergy status to narcotic agent; Z88.0 Allergy status to penicillin
CPT/HCPCS: 80053; 83690; 85027; 99281; 99285; J2405

== ENCOUNTER 2017-08-23 02:05 | Inpatient (IN) | payer OTHER ==
[~2017-08-23] VITALS: Ht 180.3 cm; Wt 131.8 kg
[~2017-08-23 02:05] MED LIST changes: +ZOFRAN ODT4 MG PO
[2017-08-23 02:25] LABS: HEMATOCRIT 37.3 % (38.0-50.0); HEMOGLOBIN 12.8 G/DL (12.5-16.6); MCH 28.5 PG (29.0-34.0); MCHC 34.3 G/DL (30.0-36.0); MCV 83.1 FL (86-99); PLATELET COUNT 170 K/uL (156-360); RBC DIS.WIDTH-CV 13.5 % (11.8-14.6); RBC DIS.WIDTH-SD 40.5 % (39-53); RED BLOOD COUNT 4.49 M/uL (4.00-5.50); WHITE BLOOD COUNT 6.5 K/uL (4.1-10.2)
[2017-08-23 02:34] LABS: CHLORIDE 95 mEq/L (99-109); POTASSIUM 5.6 mEq/L (3.7-5.4); SODIUM 131 mEq/L (136-147)
[2017-08-23 02:39] LABS: CREATININE 2.1 mg/dL (0.6-1.3); GFR ESTIMATE (CALCULATED) 34 mL/min/ (58.99-99999)
[2017-08-23 02:40] LABS: UREA NITROGEN (BUN) 32 mg/dL (9-23)
[2017-08-23 02:42] LABS: CARBON DIOXIDE (BICARBONATE) 27.7 MEQ/L (20-31)
[2017-08-23 02:48] LABS: TROP-I INTERPRETATION NEGATIVE; TROPONIN-I < 0.01 ng/mL (0.0-0.30)
[2017-08-23 02:56] LABS: GLUCOSE 660 mg/dL (70-99)
[2017-08-23 03:00] LABS: LIPASE 126 U/L (1.0-51.0)
[2017-08-23 07:11] VITALS: BP 176/84
[2017-08-23 07:33] VITALS: BP 156/70
[2017-08-23 08:15] LABS: CARBON DIOXIDE (BICARBONATE) 29.1 MEQ/L (20-31)
[2017-08-23 08:36] LABS: ALBUMIN 3.3 G/DL (3.2-4.8); ALKALINE PHOSPHATASE 78 IU/L (3-129); ALT (GPT) 18 IU/L (3-49); AST (GOT) 12 IU/L (2-34); CHLORIDE 99 MEQ/L (99-109); CREATININE 1.8 MG/DL (0.6-1.3); GFR ESTIMATE (CALCULATED) 40 mL/min/ (58.99-99999); GLUCOSE 363 mg/dL (70-99); MAGNESIUM 1.9 mg/dl (1.3-2.7); SODIUM 134 MEQ/L (136-147); TOTAL BILIRUBIN 0.4 MG/DL (0.0-1.0); TOTAL PROTEIN 5.7 G/DL (6.4-8.3); UREA NITROGEN (BUN) 30 mg/dL (9-23)
[2017-08-23 08:53] LABS: POTASSIUM 3.9 MEQ/L (3.7-5.4)
[2017-08-23 12:10] VITALS: BP 100/62
[2017-08-23 16:35] VITALS: BP 126/78
[2017-08-23 19:15] VITALS: BP 129/65
[2017-08-23 23:15] VITALS: BP 129/59
[2017-08-24 03:30] VITALS: BP 123/78
[2017-08-24 06:24] LABS: ALBUMIN 2.9 G/DL (3.2-4.8); ALKALINE PHOSPHATASE 77 IU/L (3-129); ALT (GPT) 16 IU/L (3-49); AMYLASE 27 IU/L (1-118); AST (GOT) 13 IU/L (2-34); CREATININE 1.9 MG/DL (0.6-1.3); GFR ESTIMATE (CALCULATED) 38 mL/min/ (58.99-99999); GLUCOSE 244 mg/dL (70-99); LIPASE 49 U/L (1.0-51.0); MAGNESIUM 1.8 mg/dl (1.3-2.7); TRIGLYCERIDES 256 MG/DL (Normal: <150); UREA NITROGEN (BUN) 27 mg/dL (9-23)
[2017-08-24 06:52] LABS: TOTAL BILIRUBIN 0.3 MG/DL (0.0-1.0)
[2017-08-24 07:35] LABS: CHLORIDE 100 MEQ/L (99-109); POTASSIUM 4.3 MEQ/L (3.7-5.4); SODIUM 132 MEQ/L (136-147)
[2017-08-24 08:00] VITALS: BP 123/56
[2017-08-24] MEDS ORDERED: PERCOCET 5/31 TABLET PO (08:57)
[2017-08-24] MEDS ORDERED: MELOXICAM15 MG PO (08:58)
[2017-08-24] MEDS ORDERED: CYMBALTA60 MG PO (08:58)
[2017-08-24 10:20] LABS: HEMOGLOBIN A1c (GLYCOHEMOGLOB) 13.5 % (Below 5.7)
[2017-08-24 11:20] VITALS: BP 137/65
[2017-08-24 15:39] VITALS: BP 123/58
[2017-08-24 20:02] VITALS: BP 153/57
[2017-08-25] VITALS (7 sets, daily range): BP systolic 117–150; BP diastolic 59–70
[2017-08-25 05:49] LABS: BASOPHIL COUNT 0.1 K/uL (0-0.1); EOSINOPHIL (%) 5.2 % (0-5); EOSINOPHIL COUNT 0.3 K/uL (0-0.3); HEMATOCRIT 30.1 % (38.0-50.0); IMMATURE GRANULOCYTE (%) 0.3 % (0.0-0.7); LYMPHOCYTE COUNT 2.1 K/uL (1.0-2.8); MCHC 33.2 G/DL (30.0-36.0); MCV 84.3 FL (86-99); MONOCYTE (%) 7.6 % (3-12); MONOCYTE COUNT 0.4 K/uL (0-0.8); NEUTROPHIL (%) 49.9 % (45-76); NEUTROPHIL COUNT 2.9 K/uL (1.8-6.4); PLATELET COUNT 147 K/uL (156-360); RBC DIS.WIDTH-CV 13.6 % (11.8-14.6); RBC DIS.WIDTH-SD 41.6 % (39-53); RED BLOOD COUNT 3.57 M/uL (4.00-5.50); WHITE BLOOD COUNT 5.8 K/uL (4.1-10.2)
[2017-08-25 06:07] LABS: CHLORIDE 104 MEQ/L (99-109); CREATININE 1.7 MG/DL (0.6-1.3); GFR ESTIMATE (CALCULATED) 43 mL/min/ (58.99-99999); GLUCOSE 264 mg/dL (70-99); SODIUM 134 MEQ/L (136-147); UREA NITROGEN (BUN) 26 mg/dL (9-23)
[2017-08-25 06:08] LABS: POTASSIUM 5.2 MEQ/L (3.7-5.4)
[2017-08-26 00:43] VITALS: BP 137/69
[2017-08-26 04:14] VITALS: BP 151/68
[2017-08-26 06:04] LABS: HEMATOCRIT 31.5 % (38.0-50.0); HEMOGLOBIN 10.4 G/DL (12.5-16.6); MCH 28.3 PG (29.0-34.0); MCV 85.8 FL (86-99); PLATELET COUNT 141 K/uL (156-360); RBC DIS.WIDTH-CV 13.9 % (11.8-14.6); RBC DIS.WIDTH-SD 43.1 % (39-53); RED BLOOD COUNT 3.67 M/uL (4.00-5.50); WHITE BLOOD COUNT 5.8 K/uL (4.1-10.2)
[2017-08-26 06:34] LABS: CHLORIDE 104 MEQ/L (99-109); CREATININE 1.7 MG/DL (0.6-1.3); GFR ESTIMATE (CALCULATED) 43 mL/min/ (58.99-99999); GLUCOSE 220 mg/dL (70-99); POTASSIUM 4.9 MEQ/L (3.7-5.4); SODIUM 134 MEQ/L (136-147); UREA NITROGEN (BUN) 26 mg/dL (9-23)
[2017-08-26 08:10] VITALS: BP 158/87
[2017-08-26 12:04] VITALS: BP 147/78
[2017-08-26] MEDS ORDERED: CARVEDILOL12.5 MG PO (12:12)
[2017-08-26] MEDS ORDERED: NOVOLOG PE100 UNITS/ SC (12:12)
[2017-08-26] MEDS ORDERED: PEN NEEDLE1 EAC9 MC (12:12)
[2017-08-26] MEDS ORDERED: LEVEMIR FL100 UNIT/1 SC (12:12)
== END 2017-08-26 16:24 | disposition home or self-care (01) | DRG 439 ==
LOC: EME 02:05 → EDOF 04:04 → ENRESERV 04:05 → EDOF 04:50 → 4EAST 04:50 → EDOF 04:50 → 5EAST 04:50 → ENRESERV 05:01 → 4EAST 06:24 → ENRESERV 08-24 05:05 → 5EAST 08-24 07:57
PROVIDERS: Emergency Medicine; Hospitalist; Physician Assistant Medical; Student in an Organized Health Care Education/Training Program
DX: K85.90 Acute pancreatitis without necrosis or infection, unspecified (principal); N17.9 Acute kidney failure, unspecified; E11.65 Type 2 diabetes mellitus with hyperglycemia; T38.3X6A Underdosing of insulin and oral hypoglycemic [antidiabetic] drugs, initial encounter; I13.0 Hypertensive heart and chronic kidney disease with heart failure and stage 1 through stage 4 chronic kidney disease, or unspecified chronic kidney disease; I50.9 Heart failure, unspecified; E11.22 Type 2 diabetes mellitus with diabetic chronic kidney disease; N18.3 Chronic kidney disease, stage 3 (moderate); E11.21 Type 2 diabetes mellitus with diabetic nephropathy; E11.40 Type 2 diabetes mellitus with diabetic neuropathy, unspecified; E87.1 Hypo-osmolality and hyponatremia; E87.2 Acidosis; E87.5 Hyperkalemia; Z91.120 Patient's intentional underdosing of medication regimen due to financial hardship; Z99.81 Dependence on supplemental oxygen; G47.33 Obstructive sleep apnea (adult) (pediatric); E66.01 Morbid (severe) obesity due to excess calories; Z68.39 Body mass index [BMI] 39.0-39.9, adult; J44.9 Chronic obstructive pulmonary disease, unspecified; E78.5 Hyperlipidemia, unspecified; E03.9 Hypothyroidism, unspecified; N40.0 Benign prostatic hyperplasia without lower urinary tract symptoms; K21.9 Gastro-esophageal reflux disease without esophagitis; I25.10 Atherosclerotic heart disease of native coronary artery without angina pectoris; I25.2 Old myocardial infarction; D64.9 Anemia, unspecified; F31.9 Bipolar disorder, unspecified; F41.9 Anxiety disorder, unspecified; G43.909 Migraine, unspecified, not intractable, without status migrainosus; R74.8 Abnormal levels of other serum enzymes; Z79.4 Long term (current) use of insulin; Z86.73 Personal history of transient ischemic attack (TIA), and cerebral infarction without residual deficits; Z87.891 Personal history of nicotine dependence
CPT/HCPCS: 71046; 74176; 80048; 80053; 82010; 82150; 82803; 82948; 83036; 83690; 83735; 84478; 84484; 85025; 85027; 93005; 94640 76; 94799; 99202; 99281; 99284; J1170; J1650; J1815; J2405; J7030; J7120; S0028